=== PATIENT | female | born 1965 | race Caucasian/White ===

== ENCOUNTER 2020-03-07 14:30 | Outpatient (RCR) | payer MEDICAID, SELFPAY | END 2020-03-13 09:26 | disposition other institution (70) | LOC: HO.OT 14:30 | PROVIDERS: Visit Provider Orthopaedic Surgery | DX: S67.193D Crushing injury of left middle finger, subsequent encounter (principal) | CPT/HCPCS: 97035; 97110; 97140; 97760 ==

== ENCOUNTER 2020-03-07 16:17 | Outpatient (REF) | payer MEDICAID, SELFPAY | END 2020-03-07 16:18 | disposition home or self-care (01) | LOC: HO.LAB 16:17 | PROVIDERS: PCP Internal Medicine; Visit Provider Internal Medicine | DX: Z20.828 Contact with and (suspected) exposure to other viral communicable diseases (principal) | CPT/HCPCS: C9803; U0003 ==

== ENCOUNTER → 2020-06-28 13:39 | Outpatient (BNVA) | payer MEDICAID, SELFPAY | PROVIDERS: PCP Internal Medicine; Visit Provider Hospitalist | DX: J41.8 Mixed simple and mucopurulent chronic bronchitis (principal); R91.8 Other nonspecific abnormal finding of lung field; D80.1 Nonfamilial hypogammaglobulinemia | CPT/HCPCS: 99212 ==

== ENCOUNTER → 2020-09-26 15:44 | Outpatient (BNVA) | payer MEDICAID, SELFPAY | PROVIDERS: PCP Internal Medicine; Visit Provider Hospitalist | DX: D80.1 Nonfamilial hypogammaglobulinemia (principal); R91.8 Other nonspecific abnormal finding of lung field; J41.8 Mixed simple and mucopurulent chronic bronchitis | CPT/HCPCS: 99212 ==

== ENCOUNTER → 2020-11-15 15:08 | Outpatient (BNVA) | payer MEDICAID, SELFPAY | PROVIDERS: PCP Internal Medicine; Visit Provider Hospitalist | DX: J41.8 Mixed simple and mucopurulent chronic bronchitis (principal); R91.8 Other nonspecific abnormal finding of lung field; Q79.60 Ehlers-Danlos syndrome, unspecified; K44.9 Diaphragmatic hernia without obstruction or gangrene | CPT/HCPCS: 99212 ==

== ENCOUNTER → 2021-03-25 14:26 | Outpatient (BNVA) | payer MEDICAID, SELFPAY | PROVIDERS: PCP Internal Medicine; Visit Provider Hospitalist | DX: J41.8 Mixed simple and mucopurulent chronic bronchitis (principal); R91.8 Other nonspecific abnormal finding of lung field; K44.9 Diaphragmatic hernia without obstruction or gangrene; Q79.60 Ehlers-Danlos syndrome, unspecified | CPT/HCPCS: 99212 ==

== ENCOUNTER → 2021-06-02 15:20 | Outpatient (BNVA) | payer MEDICAID, SELFPAY | PROVIDERS: PCP Internal Medicine; Visit Provider Hospitalist | DX: J41.8 Mixed simple and mucopurulent chronic bronchitis (principal); R91.8 Other nonspecific abnormal finding of lung field; J98.11 Atelectasis; R88.8 Abnormal findings in other body fluids and substances; K44.9 Diaphragmatic hernia without obstruction or gangrene; K86.89 Other specified diseases of pancreas; Q79.60 Ehlers-Danlos syndrome, unspecified; Z79.899 Other long term (current) drug therapy | CPT/HCPCS: 99212 ==

== ENCOUNTER → 2021-08-01 15:18 | Outpatient (BNVA) | payer MEDICAID, SELFPAY | PROVIDERS: PCP Internal Medicine; Visit Provider Hospitalist | DX: J41.8 Mixed simple and mucopurulent chronic bronchitis (principal); R91.8 Other nonspecific abnormal finding of lung field; G47.33 Obstructive sleep apnea (adult) (pediatric); J98.11 Atelectasis; Q79.60 Ehlers-Danlos syndrome, unspecified; R88.8 Abnormal findings in other body fluids and substances | CPT/HCPCS: 99212 ==

== ENCOUNTER → 2021-08-06 09:11 | Outpatient (REF) | payer MEDICAID, SELFPAY | LOC: HO.SL 09:11 | PROVIDERS: PCP Internal Medicine; Visit Provider Hospitalist | DX: G47.33 Obstructive sleep apnea (adult) (pediatric) (principal) | CPT/HCPCS: 95806 ==

== ENCOUNTER → 2021-10-06 14:58 | Outpatient (BNVA) | payer MEDICAID, SELFPAY | PROVIDERS: PCP Internal Medicine; Visit Provider Hospitalist | DX: J44.9 Chronic obstructive pulmonary disease, unspecified (principal); E84.9 Cystic fibrosis, unspecified; R91.8 Other nonspecific abnormal finding of lung field; Q79.60 Ehlers-Danlos syndrome, unspecified; F17.210 Nicotine dependence, cigarettes, uncomplicated | CPT/HCPCS: 99212 ==

== ENCOUNTER 2021-10-09 09:36 | Outpatient (REF) | payer MEDICAID, SELFPAY ==
--- NOTE | ~2021-10-09 | CT_ITS ---
EXAMINATION: CHEST CT WITHOUT CONTRAST HIGH RIGHT CLINICAL INFORMATION: Cystic fibrosis COMPARISON: None TECHNIQUE: Axial images through the chest without contrast. Sagittal and coronal reconstructions on the technologist workstation were performed. High-resolution 1 mm thin axial images through the chest was also performed. Patient dose 1 2 1 mg/cm This CT examination was performed using dose optimization techniques as appropriate, variously including the following: *Automated exposure control *Adjustment of mA and/or kV according to patient size (this includes techniques or standardized protocols for targeted exams where dose is matched to indication/reason for exam; i.e. extremities or head) *Use of iterative reconstruction technique FINDINGS: There is evidence of mild paraseptal emphysema. There are several small lung cysts seen in the upper lobes. No definite bronchiectasis is seen. No significant bronchial wall thickening. No endobronchial or endotracheal lesion is seen. The lungs are clear. The mediastinum is normal. There is very minimal coronary artery calcification. There is no pleural effusion or pleural thickening. No chest wall mass or enlarged axillary lymph nodes. Post surgical changes to the stomach. Post cholecystectomy. There is mild curvature of the lower thoracic spine to the right. Bony structures are otherwise unremarkable. CT/CT chest wo con - High Res IMPRESSION: No evidence of cystic fibrosis seen. Mild paraseptal emphysema and cystic changes.
== END 2021-10-09 09:37 | disposition home or self-care (01) ==
LOC: HO.CT 09:36
PROVIDERS: PCP Internal Medicine; Visit Provider Hospitalist
DX: E84.9 Cystic fibrosis, unspecified (principal); J44.9 Chronic obstructive pulmonary disease, unspecified; Q79.60 Ehlers-Danlos syndrome, unspecified; R91.8 Other nonspecific abnormal finding of lung field
CPT/HCPCS: 71250

== ENCOUNTER 2021-11-18 11:31 | Outpatient (REF) | payer BC, SELFPAY ==
[2021-11-18 11:47] LABS: MANUAL DIFF FLAG NO
[2021-11-18 12:33] LABS: Hematocrit 40.5 % (37.0-47.0); Hemoglobin 13.1 g/dl (12.0-16.0); Mean Corpuscular Hemoglobin 28.2 pg (27.0-33.0); Mean Corpuscular Volume 87.3 fL (80.0-98.0); Red Blood Count 4.64 X10*6/uL (4.20-5.50); White Blood Count 6.9 X10*3/uL (4.8-10.8)
[2021-11-18 12:34] LABS: Basophils Absolute Auto 0.1 X10*3/uL (0.0-0.2); Basophils Percent Auto 0.7 % (0-2); Eosinophils Absolute Auto 0.2 X10*3/uL (0.0-0.4); Eosinophils Percent Auto 2.6 % (0-4); Imm Gran Abs Auto 0.02 X10*3/uL (0.00-0.03); Imm Gran Pct Auto 0.3 % (0.0-0.4); Lymphocytes Percent Auto 28.6 % (20-40); Mean Corpuscular HGB Conc 32.3 g/dl (31.0-35.0); Mean Platelet Volume 12.1 fL (9.4-12.3); Monocytes Absolute Auto 0.5 X10*3/uL (0.1-1.2); Monocytes Percent Auto 7.8 % (2-11); Neutrophils Absolute Auto 4.1 x10*3/uL (2.0-8.3); Platelet Count 247 X10*3/uL (160-400); Red Cell Distribution Width 12.7 % (11.0-16.0)
[2021-11-18 13:13] LABS: Alanine Aminotransferase 17 U/L (0-31); Albumin Level 4.2 g/dL (3.5-5.0); Alkaline Phosphatase 73 U/L (39-117); Anion Gap 10 (12-20); Aspartate Amino Transferase 20 U/L (5-31); Bilirubin Total 0.7 mg/dL (0.0-1.0); Blood Urea Nitrogen 10 mg/dL (9-16); Calcium 9.2 mg/dL (8.4-10.2); Carbon Dioxide 28 mmol/L (22-29); Chloride 105 mmol/L (96-108); Estimated Glomerular Filt Rate > 60; Glucose Random 104 mg/dL (60-115); Potassium 4.1 mmol/L (3.3-5.1); Sodium 139 mmol/L (135-145); Total Protein 6.4 g/dL (6.5-8.0)
[2021-11-18 13:20] LABS: Cortisol Random 13.5 ug/dL; TSH reflex Free T4 2.99 uIU/mL (0.32-4.0)
== END 2021-11-18 11:32 | disposition home or self-care (01) ==
LOC: HO.LAB 11:31
PROVIDERS: Visit Provider Internal Medicine
DX: Z00.00 Encounter for general adult medical examination without abnormal findings (principal); E04.2 Nontoxic multinodular goiter; E78.00 Pure hypercholesterolemia, unspecified; I10 Essential (primary) hypertension
CPT/HCPCS: 36415; 80053; 82533; 84443; 85025

== ENCOUNTER 2022-01-21 15:25 | Outpatient (REF) | payer BC, SELFPAY | END 2022-01-21 15:26 | disposition home or self-care (01) | LOC: HO.LAB 15:25 | PROVIDERS: PCP Internal Medicine; Visit Provider Hospitalist | DX: Z13.89 Encounter for screening for other disorder (principal) ==

== ENCOUNTER 2022-02-17 10:09 | Outpatient (REF) | payer BC, MEDICAID, SELFPAY ==
[2022-02-17 10:33] LABS: MANUAL DIFF FLAG NO
[2022-02-17 11:46] LABS: Basophils Absolute Auto 0.1 X10*3/uL (0.0-0.2); Eosinophils Absolute Auto 0.6 X10*3/uL (0.0-0.4); Eosinophils Percent Auto 8.6 % (0-4); Hematocrit 38.5 % (37.0-47.0); Hemoglobin 12.6 g/dl (12.0-16.0); Imm Gran Abs Auto 0.02 X10*3/uL (0.00-0.03); Imm Gran Pct Auto 0.3 % (0.0-0.4); Lymphocytes Absolute Auto 1.7 X10*3/uL (1.2-4.9); Lymphocytes Percent Auto 25.3 % (20-40); Mean Corpuscular HGB Conc 32.7 g/dl (31.0-35.0); Mean Corpuscular Hemoglobin 28.8 pg (27.0-33.0); Mean Corpuscular Volume 88.1 fL (80.0-98.0); Mean Platelet Volume 12.2 fL (9.4-12.3); Monocytes Absolute Auto 0.5 X10*3/uL (0.1-1.2); Monocytes Percent Auto 6.8 % (2-11); Neutrophils Absolute Auto 3.9 x10*3/uL (2.0-8.3); Platelet Count 244 X10*3/uL (160-400); Red Blood Count 4.37 X10*6/uL (4.20-5.50); Red Cell Distribution Width 13.1 % (11.0-16.0); White Blood Count 6.8 X10*3/uL (4.8-10.8)
[2022-02-17 12:21] LABS: Erythrocyte Sedimentation Rate 2 MM/HR (0-20)
[2022-02-19 13:46] LABS: Immunoglobulin G Subclass 1 308 mg/dL (382-929); Immunoglobulin G Subclass 2 114 mg/dL (241-700); Immunoglobulin G Subclass 3 49 mg/dL (22-178); Immunoglobulin G Total 527 mg/dL (600-1640)
[2022-02-19 17:06] LABS: Immunoglobulin E 48 kU/L (<OR=114)
[2022-02-25 14:36] LABS: Asperg fumigatus Precip Abs NEGATIVE (NEGATIVE); Micropoly faeni Abs NEGATIVE (NEGATIVE); Pigeon serum Abs NEGATIVE (NEGATIVE); Saccharo pora viridis Abs NEGATIVE (NEGATIVE); Thermo candidus Abs NEGATIVE (NEGATIVE); Thermoa vulgaris #1 NEGATIVE (NEGATIVE)
== END 2022-02-17 10:10 | disposition home or self-care (01) ==
LOC: HO.LAB 10:09
PROVIDERS: PCP Internal Medicine; Visit Provider Hospitalist
DX: D80.1 Nonfamilial hypogammaglobulinemia (principal); J45.909 Unspecified asthma, uncomplicated; R91.8 Other nonspecific abnormal finding of lung field
CPT/HCPCS: 36415; 82784; 82785; 85025; 85652; 86003; 86331; 86606; 86609

== ENCOUNTER → 2022-07-10 14:16 | Outpatient (BNVA) | payer BC, SELFPAY | PROVIDERS: PCP Internal Medicine; Visit Provider Hospitalist | DX: Z13.89 Encounter for screening for other disorder (principal) ==

== ENCOUNTER 2023-06-24 13:20 | Outpatient (AMB) | payer BC, SELFPAY ==
[2023-06-24 13:29] VITALS: PULSE 79; O2SAT 98; BMI 17.8
--- NOTE | 2023-06-24 13:29 | A.OFFVIS_ITS ---
Intake Vital Signs 06/24/23 13:29 Height 5 ft 6 in Weight 110 lb BMI 17.8 Pulse 79 Pulse Source Pulse Oximeter Pulse Oximetry (%) 98 Oxygen Delivery Method Room Air Intake Visit Reasons: asthma Operations Intelligence Required: No Allergies warfarin Allergy (Severe, Verified 06/24/23 13:30) BP Drop codeine [CODEINE] Allergy (Unknown, Verified 06/24/23 13:30) ITCHING aspirin [ASPIRIN] Adverse Reaction (Unknown, Verified 06/24/23 13:30) STOMACH UPSET Lxjsehq-AJG-FrJ Reductase Inhibitor [WUUKUNB-USN-TSJ REDUCTASE INHIBITOR] Adverse Reaction (Unknown, Verified 06/24/23 13:30) MYALGIA HPI HPI Comments History of Present Illness Details The patient is a 58-year-old woman with a known history of asthma and COPD who has been having worsening shortness of breath. Overall her breathing is better at this time. She does have Symbicort that she uses. She stopped using the Spiriva at this time. She has noticed that her symptoms are worse usually during the late summer early fall with the different allergy sees. Or she was concerned about overnight hypoxia up so therefore she underwent a 3 night overnight oximetry. He did demonstrate some episodic hypoxia but it was likely inaccurate as it appeared and grafted day were not recording any actual reliable data. Therefore, based on those 3 studies there doesn't appear to be in significant hypoxia to have to treat at this time. She denies any headaches or daytime drowsiness any way. She is still being evaluated for the EDS. The patient did very well with pulmonary rehabilitation. She only had for classes to complete her phase 2 course. Her insurance changed at this time. Will see if we could try to have her complete the program with her insurance. 08/01/2021 the patient is here for a pulmo ronak follow-up visit. Since we last spoke she did go to [place] to be evaluated for the abnormal sweat test. She will have that repeated and she will have genetic testing for cystic fibrosis as well. The suspicion that she has cystic fibrosis or variants is very low. In the meantime she continues use respiratory therapy. The patient has not required any prednisone or her short-acting beta agonist. She has been having issues with daytime drowsiness. She does have snoring at nighttime and also has headaches in the morning. Her [place] score is elevated 04/25. Will request a home sleep study at this time. 10/06/2021 the patient is here for a pulsameer simons follow-up visit. Since we last spoke the patient did follow up in [place] with the cystic fibrosis clinic. 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 She does have multiple organ involvement now on pancreatic enzymes for her pancreatic insufficiency and also complaining of significant weight loss. She is having respiratory issues with chronic bronchitis and very difficult to expectorate mucus plugs. Indeed this is consistent with her diagnosis of cystic fibrosis. If she needs more aggressive chest physical therapy. She would like to try the hypertonic saline. She also has an Acapella valve. Will continue using that for now. We will request a CT scan of the chest to further address her airway disease and potential bronchiectasis. Will request high-resolution cuts to further address that. In the meantime we need to follow-up with pulmonary nodules specially with her significant weight loss. She did have a chest x-ray which was without any acute disease back in July 2021 which was done local hospital. At this point the CT scan will be necessary to further address her ongoing symptoms her new diagnosis of cystic fibrosis in addition to her underlying pulmonary nodules. 11/11/2021 the patient is here for pulmon denzel follow-up visit. Overall the patient has been doing well. Initially she was having worsening respiratory symptoms specially at nighttime. She was waking up short of breath with coughing wheezing. She would have to use her inhaler. She will be due desperate to set up for the nebulizer. She has been using the Alvesco and also the Stiolto. She also has been using the nebulizer about once a day. Once the patient started taking the azithromycin as prescribed her symptoms did improve. She will continue to take the azithromycin 3 times a week in order to treat for her chronic bronchitis and CFTR related disease. The patient also has a low IgG level based on her recent blood work. Therefore she does have some hypo gammaglobulinemia. But her levels are slightly decreased and she is responding to the azithromycin 3 times a week. Therefore I would have her hold off on considering IVIG infusions unless she develops worsenign respiratory symptoms. We did talk about reflux disease and making sure that she sleeps elevated. She will looking to getting risers for the bed to try to minimize potential pharyngeal laryngeal penetration in the meantime she did undergo her CT scan of the chest with high-resolution cuts. I personally reviewed the CT scan. She does have some thickening of the airways and some areas suggesting of chronic bronchitis. She also has bronchiectatic changes primarily on the left base. These are minimal changes. Patient also has some evidence of emphysema primarily in the upper lung zones. Subcentimeter pulmonary nodules are also identified. 02/17/2022 the patient is here for pulia ronak follow-up visit. She is having worsening respiratory symptoms. She had recovered from her COVID syndrome several weeks ago when she was back to her baseline. Then she started developing nasal congestion and cough. Subsequently after that she started developing wheezing. She had significant allergies in the past. She had allergy testing and had an carbon electrodes supervisor that had been providing her with immunotherapy. However, she is no longer following up with that group. The patient did have significant wheezing on examination. She will need additional prednisone. In addition to that her PFTs to demonstrated mild obstruction which indeed could be uncontrolled asthma. The patient also has pulmonary nodules therefore will also reassess for a hyper sensitivity reaction. She continues to take the pancreas and is increasing her caloric intake. She has been able to maintain her weight and her BMI around 18-19. In view of the worsening respiratory symptoms and recurrent flare ups we need to readdress the question of her low IgG levels. Therefore, we are request allergy testing and IgG levels it is time to see if she has a candidate for any additional therapies. 03/17/2022 the patient is [facility]. Since we last spoke the patient apparently received her flu and also her COVID-19 booster. In addition to that she started a new medication Fasenra. She started developing a reaction to the medication with evidence of angioedema and some shortness of breath. She did call our office to be evaluated. We did try to call her back but no answer. Fortunately she was able to talk to her primary care doctor. She was placed on prednisone. Patient is doing better now. She still has some evidence of injury edema. She does have an EpiPen available in case her symptoms worsen. She did take a small dose of prednisone unfortunately the prednisone does cause her significant irritability and also Effexor sleep. The patient still having some wheezing on examination I do believe that she may do better with Medrol. Therefore I will send Medrol to the pharmacy. The patient may also benefit from Racemic epi. The patient can get that xzeg-bjw-ziicunh, Primamist. the patient does not feel that it was likely the Fasenra. Although she should premedicate before her next dose. The patient is concerned about the persistent hypogammaglobulinemia. In view of her significant conditions the patient would like to be evaluated for IVIG. The patient does have a very complicated medical history and I do believe the best way to further evaluate her immunodeficiency would be to refer her to Allergy and Immunology. 07/10/2022 the patient has a telephone vi sit today. Recently the patient had a sick contact while flying back from her [place]. She developed laryngitis and subsequently developed the cough and chest congestion and bronchitis. It definitely activated her asthma. The patient started some prednisone that she had left over. In addition to that she doubled up on the azithromycin. Clinically she is doing a little better but she still having hard time with breathing and coughing. Also no additional medication at this time. Her mucus that was thicker and yellow in color. She is concerned of a bacterial infection that is not clearing up with the azithromycin. Therefore we talked about sending a quinolone. She is aware that she needs to monitor closely for any tendinitis. In addition to that she did follow up with immunology. Due to her immunodeficiency and hypogammaglobulinemia was felt that she should start IVIG. She should be doing that in the coming weeks. She also continues some Fasenra injections. Initially was extremely helpful for her for her asthma. However, lately is not lasting the duration that he should. She is wondering if she should switch to a different biologic. She was wondering about Nucala. I did recommend that she speak to her carbon electrodes supervisor about it. I do believe that test prior may be a very good option as well. In the meantime she is going to continue with current respiratory therapy. She undergo pulmonary function studies before going to the [facility] the cystic fibrosis clinic. She is open to transfer over to the heart for 1 which is a little closer to her. 06/24/2023 the patient is here for a pulm onary follow-up visit. The patient has been having worsening asthma symptoms. She did receive a prescription for Medrol which did improve her symptoms. She is still having some wheezing at times. She is weaning still from the Medrol. She continues using her respiratory therapy. The patient needs to go back on inhaled steroid. She had tried multiple inhalers in the past including Flovent, Asmanex could not tolerate it due to adverse effects including thrush. She can not tolerate the powder inhalers. The only inhaled steroid that works for her Alvesco. I will request that went from her at this time. In addition to that she had responded very well to the Fasenra injections but they were then not helpful. She then went to allergy immunology and was prescribed Tezspire. Unfortunately that resulted in worsening infections and worsening respiratory symptoms and GI adverse effects. Therefore she stopped it. Now with worsening asthma symptoms and her significant eosinophilia it will be reasonable to try her on Nucala. Nucala be once a month and therefore be more effective for her. Currently she is on steroids over would have to wait for her to wean off the steroids to check her eosinophil level. The last time we checked it was back in 2021 and her absolute eosinophils worsens 100. the patient also has a immunodeficiency and currently receiving IgG therapy with allergy immunology. The therapy has been affecting beneficial. [facility] Medical History (Updated 06/24/23 @ 21:19 by Vasquez Ochoa MD) Primary immunodeficiency disorder Hypogammaglobulinemia Asthma Cystic fibrosis Asthma-COPD overlap syndrome Atelectasis Pancreatic insufficiency Abnormal sweat test Hiatal hernia EDS (Bhupendra-Danlos syndrome) Personal history of nicotine dependence Hypogammaglobulinemia Pulmonary nodules COPD (chronic obstructive pulmonary disease) Surgical History (Updated 06/17/23 @ 10:45 by Malu Steinberg RN) H/O foot surgery H/O total hysterectomy Social History (Updated 10/06/21 @ 15:18 by CHARLOTTE Bangura) Household Members: Other Household Members Other:: 2 cats and one dog Patient Tobacco Use Status: Current everyday Tobacco user Tobacco use type: Cigarette Cigarettes Per Day: 4 Years Smoked: 30 years Review of Systems Const Denies night sweats and Reports weight loss Eyes Denies change in vision ENT Denies change in voice, Reports lip swelling, Denies mouth pain, Reports nasal congestion, Reports nasal discharge, Reports post nasal drip and Denies tongue swelling Card Denies chest pain, Reports dyspnea and Reports dyspnea on exertion Resp Reports chest congestion, Reports cough, Denies pain on inspiration, Denies pain with cough, Reports dyspnea, Reports dyspnea on exertion and Reports wheezing GI Reports GI cramping, Reports heartburn, Reports diarrhea and Reports loose stools Musc Denies no additional complaints Neuro Denies Neuro-related abnormal movements Psych Denies no additional complaints Facundo/Lymph Denies easy bleeding and Denies lymphadenopathy Aller/Immun Reports lip swelling, Denies tongue swelling and Reports wheezing Physical Exam Vital Signs: Last Vital Signs Pulse 79 06/24/23 13:29 Pulse Ox 98 06/24/23 13:29 Oxygen Delivery Method Room Air 06/24/23 13:29 BMI result Body Mass Index 17.8 Const General: alert HEENT Face and sinus: Yes erythema and Yes edema Mouth: lip abnormal Neck Neck: Yes full ROM Chest Chest palpation & inspection: normal inspection of the chest Resp Effort & Inspection: prolonged expiratory phase Auscultation: wheezes and diminished lung sounds Cardio Rate: regular rate Rhythm: regular rhythm Heart sounds: S1 normal heart sound present and S2 normal heart sound present GI Palpation (GI): Tenderness to palpation present (GI) (distended and tesnder on the lower quadrents) Auscultation: normal bowel sounds Skin General skin exam: rashes and/or lesions noted Assessment & Plan Assessment & Plan (1) Asthma: Comment: uncontrolled, eosinophilic asthma Code(s): J45.909 - Unspecified asthma, uncomplicated Qualifiers: Asthma complication type: with acute exacerbation Asthma persistence: persistent Asthma severity: severe Qualified Code(s): J45.51 - Severe persistent asthma with (acute) exacerbation (2) Cystic fibrosis: Comment: +sweat test x 2, +genetic testing Code(s): E84.9 - Cystic fibrosis, unspecified (3) Pulmonary nodules: Comment: (stable right lung nodules on 07/17/[address] @ [facility]) Code(s): R91.8 - Other nonspecific abnormal finding of lung field (4) EDS (Bhupendra-Danlos syndrome): Code(s): Q79.60 - Bhupendra-Danlos syndrome, unspecified (5) Hypogammaglobulinemia: Code(s): D80.1 - Nonfamilial hypogammaglobulinemia Plan Start medrol taper restart Alvesco HFA, tried and failed Asmanex, flovent and powdered inhalers. But did not tolerate Awaiting IVIG therapy continue CPT with hypertonic saline 7% and acapella valve Consider CPT with percussion vest if no better Continue Alvesco/Stiolto SHARDA as needed (Xopenex) start Nucala F/U 3 months Orders: Orders Complete Blood Count Auto Diff Today J45.909 - Unspecified asthma, uncomplicated Immunoglobulin E Today J45.909 - Unspecified asthma, uncomplicated Erythrocyte Sedimentation Rate Today J45.909 - Unspecified asthma, uncomplicated Medications: Refilled methylprednisolone (Medrol) Take: 2 tabs daily x 10 days, then 1 tab daily x 10 days 20 days 30 tabs 0RF Quality Reporting (2019) Adult ([facility] ) Smoking risk assessment performed?: Yes Patient Tobacco Use Status: Current everyday Tobacco user Coding Level of Care Code Est Pt Level 4 (71469) Diagnoses Severe persistent asthma with acute exacerbation J45.51 Asthma complication type: with acute exacerbation Asthma persistence: persistent Asthma severity: severe Cystic fibrosis E84.9 Pulmonary nodules R91.8 EDS (Bhupendra-Danlos syndrome) Q79.60 Hypogammaglobulinemia D80.1 Time Spent (min) 20
== END 2023-06-24 13:57 | disposition home or self-care (01) ==
PROVIDERS: PCP Internal Medicine; Visit Provider Hospitalist
DX: J45.51 Severe persistent asthma with (acute) exacerbation (principal); E84.9 Cystic fibrosis, unspecified; R91.8 Other nonspecific abnormal finding of lung field; Q79.60 Ehlers-Danlos syndrome, unspecified; D80.1 Nonfamilial hypogammaglobulinemia
CPT/HCPCS: 99214

== ENCOUNTER → 2023-06-24 13:20 | Outpatient (BNVA) | payer BC, SELFPAY | PROVIDERS: PCP Internal Medicine; Visit Provider Hospitalist ==

== ENCOUNTER → 2023-07-01 11:15 | Outpatient (BNV) | payer BC, SELFPAY | PROVIDERS: Visit Provider Psychiatry & Neurology Psychiatry | DX: F33.9 Major depressive disorder, recurrent, unspecified (principal); F69 Unspecified disorder of adult personality and behavior; F48.9 Nonpsychotic mental disorder, unspecified | CPT/HCPCS: 90792; 90832; 99213; 99499 ==

== ENCOUNTER 2023-07-05 09:45 | Outpatient (RCR) | payer BC, SELFPAY ==
[2023-06-17 10:47] VITALS: BP 116/74; PULSE 78; TEMP 37.2
[2023-06-17 10:48] VITALS: BMI 17.8
--- NOTE | 2023-06-17 11:31 | PC.ADMIT ---
06/16/23. Unable to complete nursing assessment at this time. Per [facility] manager of creative services patient is unsure if she wants to continue coming to the program. Patient wants to attend all the groups today to see if this is a good fit for her. [facility] applications programmer is aware and I will meet with her tomorrow if she decides to continue with the program. [ End ] 06/17/23. Patient is a 58 year old single female who was referred to [facility] by her therapist d/t increased depression, anxiety, and feeling overwhelmed with life stresses including work, father being ill and living [place] another state, cat being sick, having car issues, and her own medical issues including GI and immune issues. Patient is alert and oriented x4. Calm and cooperative. Presented with depressed mood and anxious affect. Denied SI or HI. Patient given a copy of her safety plan and I reviewed the plan with her if needed. Patient signed a release of information regarding her pharmacy today. Reconciled medications with patient. Patient reports taking medications as prescribed.
--- NOTE | 2023-06-17 14:52 | HO.PHP ---
Client's case has been opened and reviewed in treatment team.
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
--- NOTE | 2023-06-23 09:30 | PC.NURSE ---
oN called out of the program on 06/22/23 and 06/23/23 d/t exasperation of her asthma symptoms, she also has COPD. She is using her nebulizer and inhalers. She has an appointment with her silverware cleaner at [facility] on 05/24/23 at 1:15 pm to f/u. [facility] staff is aware.
--- NOTE | 2023-06-30 15:32 | HO.PHP ---
PHP staff member followed up with Lisa after group 3 due to her appearing angry. Lisa stated that today is a challenging day and that she was thinking about what was said around learned helplessness. Lisa feels as though she isn't working the program in the manner it is intended. [facility] staff informed her of her observations and noted that she does not see her struggling with learned helplessness due to her acknowledging areas she needs to work on. PHP staff stated she has observed her processing in the group settings the precipitating factors and utilizing the groups appropriately. Lisa was receptive. [facility] staff explored any safety concerns. Lisa expressed none and stated she is safe and will see the clinician tomorrow. [facility] staff member was receptive.
--- NOTE | 2023-07-02 23:43 | PM.EVENT ---
Event Note Date of Service: 07/05/23 Event Note: Scheduled to meet with patient who called out today. I had missed her on Wednesday as I was unable to find her at the end of the day. Prior Wednesday last week she was out. Time Spent With Patient Time: Total time managing care of this patient today ____ minutes.
--- NOTE | 2023-07-05 16:00 | PC.NURSE ---
Dr Campbell met with patient and reviewed patient discharge paperwork including discharge medications. I printed patient discharge paperwork and had patient review again and sign paperwork. Patient feeling stable for discharge. [place] the program was helpful to her. Denied SI or any safety concerns.
--- NOTE | 2023-07-05 21:11 | HO.PHPPROGNO ---
Subjective Subjective Date of Service: 07/05/23 Reason For Visit: ADHD,MDD,CHAIM,PTSD Interim History: Patient seen for follow-up, anticipating discharge at the end of program today.? Reports no acute issues or concerns. Medication compliant, medications well-tolerated. Denies any adverse effects.? Mood is stable.? Denies any hopelessness or SI. Denies thoughts of harming self or others at this time. Denies any aggressive ideation or HI. Denies any paranoia or AH or VH. Sleep, appetite, energy stable. Mental Status Exam Mental Status Exam Narrative: Alert, oriented, in no acute distress. Initially agreeable with encounter, but difficult to redirect, evasive/guarded around specific parts of history. Uncooperative with regards to reporting on prior treatment history. No psychomotor agitation or neurovegetative retardation. Eye contact maintained. Mood anxious , affect restricted range, overmodulated/ bright. Speech normal. Thought process linear, coherent. Thought content related to stressors, +med-seeking, denies any helplessness, hopelessness or SI.? No aggressive ideation or HI. No paranoia or delusional content elicited. No evidence of psychosis. Insight and judgment impaired. Diagnostics Vital Signs (24Hr): BMI result Body Mass Index 17.8 Assessment & Plan Assessment & Plan (1) MDD (major depressive disorder), recurrent episode: Status: Acute Code(s): F33.9 - Major depressive disorder, recurrent, unspecified (2) Mental and behavioral problem in adult: Status: Acute Code(s): F69 - Unspecified disorder of adult personality and behavior; F48.9 - Nonpsychotic mental disorder, unspecified Assessment and Plan: pt reports beign treated for ADHD, rule out other neurocognitive disorder r/o characterological features Plan Discharge from [facility] continue regular medications will defer further medication management to outpatient provider Refills sent to pharmacy Patient educated on: diagnosis and medication risk/benefits Informed Consent: understands Reason for contiued partial hosp. stay Substantial Risk for: stable for discharge Certification I certify that partial hospital treatment is medically necessary due to the symptoms and problems resulting from the patient's mental illness and the failure to treat the patient at the partial hospital level of care would likely result in the patient requiring inpatient psychiatric care which could not be prevented at a less intensive level of care. Total time managing care of this patient today _30___ minutes. Discharge Plan Discharge Attending provider: Rosa Campbell Medications: New nicotine [Nicoderm CQ] 14 mg/24 hr patch 24 hour 1 patch transdermal QAM 14 Days Qty: 14 0RF Rx Instructions: remove patch daily at night Continued desloratadine 5 mg tablet 5 mg PO BID Qty: 180 0RF Nucala 100 mg/mL auto-injector 100 mg subcut Q4W 28 Days Qty: 1 11RF vilazodone 10 mg tablet See Rx Instructions .ROUTE .COMPLEX Rx Instructions: Take 1/2 tab for 5 days then one tab daily. Filled 06/16/23. memantine 21 mg capsule,sprinkle,ER 24hr 21 mg PO DAILY famotidine [Pepcid] 40 mg Tablet 40 mg PO BID nicotine [Nicoderm CQ] 7 mg/24 hr patch 24 hour 1 patch transdermal Q24H Qty: 14 0RF Rx Instructions: apply patch daily in AM; remove patch daily in PM telmisartan 40 mg tablet 40 mg PO DAILY Stiolto Respimat 2.5-2.5 mcg/actuation mist 2 puff inhalation DAILY Discontinued dexmethylphenidate 2.5 mg tablet 2.5 mg PO DAILY No Action albuterol sulfate 2.5 mg /3 mL (0.083 %) solution for nebulization 2.5 mg inhalation BID 30 Days Qty: 180 11RF albuterol sulfate 90 mcg/actuation HFA aerosol inhaler 2 puff PO Q4-6H PRN (Reason: for wheezing) Qty: 1 12RF estradiol 1 mg tablet 1 mg PO DAILY Rx Instructions: off 1 week; repeat cycle methylprednisolone [Medrol] 4 mg tablet See Rx Instructions PO DAILY 20 Days Qty: 30 0RF Rx Instructions: Take: 2 tabs daily x 10 days, then 1 tab daily x 10 days Stand Alone Forms: Patient Portal Discharge page Patient Education: Depression (DC) Print Language: Lao Telehealth Telehealth Location of provider rendering services: other (private office) Location of patient: other ([facility]) Patient Identification confirmed using: Name, : Yes Telehealth method: video Patient verbally consented to treatment: Yes
== END 2023-07-05 23:59 | disposition home or self-care (01) ==
LOC: HO.PHPA 09:45
PROVIDERS: Visit Provider Psychiatry & Neurology Psychiatry
DX: F33.9 Major depressive disorder, recurrent, unspecified (principal); F69 Unspecified disorder of adult personality and behavior; F48.9 Nonpsychotic mental disorder, unspecified
CPT/HCPCS: 90791; 90853

== ENCOUNTER 2023-07-13 11:36 | Outpatient (REF) | payer BC, SELFPAY ==
[2023-07-13 11:50] LABS: MANUAL DIFF FLAG NO
[2023-07-13 13:04] LABS: Basophils Absolute Auto 0.1 X10*3/uL (0.0-0.2); Basophils Percent Auto 0.8 % (0-2); Eosinophils Absolute Auto 0.4 X10*3/uL (0.0-0.4); Eosinophils Percent Auto 5.6 % (0-4); Hemoglobin 12.6 g/dl (12.0-16.0); Imm Gran Abs Auto 0.02 X10*3/uL (0.00-0.03); Imm Gran Pct Auto 0.3 % (0.0-0.4); Lymphocytes Absolute Auto 2.3 X10*3/uL (1.2-4.9); Lymphocytes Percent Auto 37.2 % (20-40); Mean Corpuscular HGB Conc 32.3 g/dl (31.0-35.0); Mean Corpuscular Hemoglobin 28.5 pg (27.0-33.0); Mean Corpuscular Volume 88.2 fL (80.0-98.0); Mean Platelet Volume 11.8 fL (9.4-12.3); Monocytes Absolute Auto 0.5 X10*3/uL (0.1-1.2); Monocytes Percent Auto 7.6 % (2-11); Neutrophils Absolute Auto 3.1 x10*3/uL (2.0-8.3); Neutrophils Percent Auto 48.5 % (45-73); Platelet Count 223 X10*3/uL (160-400); Red Blood Count 4.42 X10*6/uL (4.20-5.50); Red Cell Distribution Width 13.2 % (11.0-16.0); White Blood Count 6.3 X10*3/uL (4.8-10.8)
[2023-07-13 13:06] LABS: Estimated Average Glucose 100 mg/dL; Hemoglobin A1c % 5.1 % (<6.0)
[2023-07-13 13:22] LABS: Alanine Aminotransferase 23 U/L (0-31); Albumin Level 3.9 g/dL (3.5-5.0); Alkaline Phosphatase 62 U/L (39-117); Anion Gap 9 (12-20); Aspartate Amino Transferase 22 U/L (5-31); Bilirubin Total 0.3 mg/dL (0.0-1.0); Blood Urea Nitrogen 17 mg/dL (9-16); Calcium 8.8 mg/dL (8.4-10.2); Carbon Dioxide 28 mmol/L (22-29); Chloride 109 mmol/L (96-108); Cholesterol 214 mg/dL (<200); Estimated Glomerular Filt Rate > 60; Glucose Random 90 mg/dL (60-115); HDL Cholesterol 81 mg/dL (>40); LDL Cholesterol Calculated 102 mg/dL (<100); Potassium 3.6 mmol/L (3.3-5.1); Sodium 142 mmol/L (135-145); Total Protein 6.6 g/dL (6.5-8.0); Triglycerides 155 mg/dL (<150)
[2023-07-13 13:38] LABS: Thyroid Stimulating Hormone 1.53 uIU/mL (0.32-4.0)
== END 2023-07-13 11:37 | disposition home or self-care (01) ==
LOC: HO.LAB 11:36
PROVIDERS: PCP Internal Medicine; Visit Provider Internal Medicine
DX: Z00.00 Encounter for general adult medical examination without abnormal findings (principal); Z13.6 Encounter for screening for cardiovascular disorders; D84.9 Immunodeficiency, unspecified; E04.2 Nontoxic multinodular goiter; I95.1 Orthostatic hypotension
CPT/HCPCS: 36415; 80053; 80061; 83036; 84443; 85025

== ENCOUNTER 2023-09-29 09:14 | Outpatient (AMB) | payer BC, SELFPAY ==
[2023-09-29 09:20] VITALS: BP 110/70; PULSE 76; O2SAT 97; BMI 17.7
--- NOTE | 2023-09-29 09:20 | A.OFFVIS_ITS ---
Vital Signs 09/29/23 09:20 Height 5 ft 6 in Weight 109 lb 12.643 oz BMI 17.7 BP 110/70 Blood Pressure Location Lt brachial Position Sitting Pulse 76 Pulse Source Pulse Oximeter Pulse Oximetry (%) 97 Oxygen Delivery Method Room Air Intake Visit Reasons: [employer] Rv Technician Required: No Allergies warfarin Allergy (Severe, Verified 09/29/23 09:24) BP Drop codeine [CODEINE] Allergy (Unknown, Verified 09/29/23 09:24) ITCHING aspirin [ASPIRIN] Adverse Reaction (Unknown, Verified 09/29/23 09:24) STOMACH UPSET Ywfaugs-YTE-PmJ Reductase Inhibitor [HAFMZSC-DRM-MBI REDUCTASE INHIBITOR] Adverse Reaction (Unknown, Verified 09/29/23 09:24) MYALGIA HPI Comments Details: The patient is a 58-year-old woman with a known history of asthma and COPD who has been having worsening shortness of breath. Overall her breathing is better at this time. She does have Symbicort that she uses. She stopped using the Spiriva at this time. She has noticed that her symptoms are worse usually during the late summer early fall with the different allergy sees. Or she was concerned about overnight hypoxia up so therefore she underwent a 3 night overnight oximetry. He did demonstrate some episodic hypoxia but it was likely inaccurate as it appeared and grafted day were not recording any actual reliable data. Therefore, based on those 3 studies there doesn't appear to be in significant hypoxia to have to treat at this time. She denies any headaches or daytime drowsiness any way. She is still being evaluated for the EDS. The patient did very well with pulmonary rehabilitation. She only had for classes to complete her phase 2 course. Her insurance changed at this time. Will see if we could try to have her complete the program with her insurance. 08/01/2021 the patient is here for a pulmonary follow-up visit. Since we last spoke she did go to [place] to be evaluated for the abnormal sweat test. She will have that repeated and she will have genetic testing for cystic fibrosis as well. The suspicion that she has cystic fibrosis or variants is very low. In the meantime she continues use respiratory therapy. The patient has not required any prednisone or her short-acting beta agonist. She has been having issues with daytime drowsiness. She does have snoring at nighttime and also has headaches in the morning. Her Camden score is elevated 04/25. Will request a home sleep study at this time. 10/06/2021 the patient is here for a pulmonary follow-up visit. Since we last spoke the patient did follow up in [place] with the cystic fibrosis clinic. 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 She does have multiple organ involvement now on pancreatic enzymes for her pancreatic insufficiency and also complaining of significant weight loss. She is having respiratory issues with chronic bronchitis and very difficult to expectorate mucus plugs. Indeed this is consistent with her diagnosis of cystic fibrosis. If she needs more aggressive chest physical therapy. She would like to try the hypertonic saline. She also has an Acapella valve. Will continue using that for now. We will request a CT scan of the chest to further address her airway disease and potential bronchiectasis. Will request high-resolution cuts to further address that. In the meantime we need to follow-up with pulmonary nodules specially with her significant weight loss. She did have a chest x-ray which was without any acute disease back in July 2021 which was done local hospital. At this point the CT scan will be necessary to further address her ongoing symptoms her new diagnosis of cystic fibrosis in addition to her underlying pulmonary nodules. 11/11/2021 the patient is here for pulmonary follow-up visit. Overall the patient has been doing well. Initially she was having worsening respiratory s ymptoms specially at nighttime. She was waking up short of breath with coughing wheezing. She would have to use her inhaler. She will be due desperate to set up for the nebulizer. She has been using the Alvesco and also the Stiolto. She also has been using the nebulizer about once a day. Once the patient started taking the azithromycin as prescribed her symptoms did improve. She will dav nue to take the azithromycin 3 times a week in order to treat for her chronic bronchitis and CFTR related disease. The patient also has a low IgG level based on her recent blood work. Therefore she does have some hypogammaglobulinemia. But her levels are slightly decreased and she is responding to the azithromycin 3 times a week. Therefore I would have her hold off on considering IVIG infusions unless she develops worsenign respiratory symptoms. We did talk about reflux disease and making sure that she sleeps elevated. She will looking to getting risers for the bed to try to minimize pot ential pharyngeal laryngeal penetration in the meantime she did undergo her CT scan of the chest with high-resolution cuts. I personally reviewed the CT scan. She does have some thickening of the airways and some areas suggesting of chronic bronchitis. She also has bronchiectatic changes primarily on the left base. These are minimal changes. Patient also has some evidence of emphysema primarily in the upper lung zones. Subcentimeter pulmonary nodules are also identified. 02/17/2022 the patient is here for pulmonary follow-up visit. She is having worsening respiratory symptoms. She had recovered from her COVID syndrome several weeks ago when she was back to her baseline. Then she started developing nasal congestion and cough. Subsequently after that she started developing wheezing. She had significant allergies in the past. She had allergy testing and had an audit clerk that had been providing her with immunotherapy. However, she is no longer following up with that group. The patient did have significant wheezing on examination. She will need additional prednisone. In addition to that her PFTs to demonstrated mild obstruction which indeed could be uncontrolled asthma. The patient also has pulmonary nodules therefore will also reassess for a hyper sensitivity reaction. She continues to take the pancreas and is increasing her caloric intake. She has been able to maintain her weight and her BMI around 18-19. In view of the worsening respiratory symptoms and recurrent flare ups we need to readdress the question of her low IgG levels. Therefore, we are request allergy testing and IgG levels it is time to see if she has a candidate for any additional therapies. 03/17/2022 the patient is here for a pulmonary follow-up visit. Since we last spoke the patient apparently received her flu and also her COVID-19 booster. In addition to that she started a new medication Fasenra. She started developing a reaction to the medication with evidence of angioedema and some shortness of breath. She did call our office to be evaluated. We did try to call her back but no answer. Fortunately she was able to talk to her primary care doctor. She was placed on prednisone. Patient is doing better now. She still has some evidence of injury edema. She does have an EpiPen available in case her symptoms worsen. She did take a small dose of prednisone unfortunately the prednisone does cause her significant irritability and also Effexor sleep. The patient still having some wheezing on examination I do believe that she may do better with Medrol. Therefore I will send Medrol to the pharmacy. The patient may also benefit from Racemic epi. The patient can get that [id number], Primamist. the patient does not feel that it was likely the Fasenra. Although she should premedicate before her next dose. The patient is concerned about the persistent hypogammaglobulinemia. In view of her significant conditions the patient would like to be evaluated for IVIG. The patient does have a very complicated medical history and I do believe the best way to further evaluate her immunodeficiency would be to refer her to Allergy and Immunology. 07/10/2022 the patient has a telephone visit today. Recently the patient had a sick contact while flying back from her why. She developed laryngitis and subsequently developed the cough and chest congestion and bronchitis. It definitely activated her asthma. The patient started some prednisone that she had left over. In addition to that she doubled up on the azithromycin. Clinically she is doing a little better but she still having hard time with breathing and coughing. Also no additional medication at this time. Her mucus that was thicker and yellow in color. She is concerned of a bacterial infection that is not clearing up with the azithromycin. Therefore we talked about sending a quinolone. She is aware that she needs to monitor closely for any tendinitis. In addition to that she did follow up with immunology. Due to her immunodeficiency and hypogammaglobulinemia was felt that she should start IVIG. She should be doing that in the coming weeks. She also continues some Fasenra injections. Initially was extremely helpful for her for her asthma. However, lately is not lasting the duration that he should. She is wondering if she should switch to a different biologic. She was wondering about Nucala. I did recommend that she speak to her audit clerk about it. I do believe that test prior may be a very good option as well. In the meantime she is going to continue with current respiratory therapy. She undergo pulmonary function studies before going to the [facility] the cystic fibrosis clinic. She is open to transfer over to the heart for 1 which is a little closer to her. 06/24/2023 the patient is here for a pulmonary follow-up visit. The patient has been having worsening asthma symptoms. She did receive a prescription for Medrol which did improve her symptoms. She is still having some wheezing at times. She is weaning still from the Medrol. She continues using her respiratory therapy. The patient needs to go back on inhaled steroid. She had tried multiple inhalers in the past including Flovent, Asmanex could not tolerate it due to adverse effects including thrush. She can not tolerate the powder inhalers. The only inhaled steroid that works for her Alvesco. I will request that went from her at this time. In addition to that she had responded very well to the Fasenra injections but they were then not helpful. She then went to allergy immunology and was prescribed Tezspire. Unfortunately that resulted in worsening infections and worsening respiratory symptoms and GI adverse effects. Therefore she stopped it. Now with worsening asthma symptoms and her significant eosinophilia it will be reasonable to try her on Nucala. Nucala be once a month and therefore be more effective for her. Currently she is on steroids over would have to wait for her to wean off the steroids to check her eosinophil level. The last time we checked it was back in 2021 and her absolute eosinophils worsens 100. the patient also has a immunodeficiency and currently receiving IgG therapy with allergy immunology. The therapy has been affecting beneficial. 09/29/2023 The patient is here for a pulmonary follow up visit. She is doing well now that she started the Nucala. She denies any significant advere reactions. She is having increasing allergy symptoms and has been taking the xyzol. She is also having the IgG augmentation therapy that has been effective and beneficial. She continues with her maintenance inhalers. Has not requiered any prednisone which is very reassuring. The patient is a former smoker and had been on the LDCT program, but not surrently. I will refer her back. In the meantime she will alse need to have PFTs this summer. [facility] Medical History (Updated 09/29/23 @ 21:36 by Vasquez Ochoa MD) Tobacco dependence in remission Screening for lung cancer Primary immunodeficiency disorder Hypogammaglobulinemia Asthma Cystic fibrosis Asthma-COPD overlap syndrome Atelectasis Pancreatic insufficiency Abnormal sweat test Hiatal hernia EDS (Bhupendra-Danlos syndrome) Personal history of nicotine dependence Hypogammaglobulinemia Pulmonary nodules COPD (chronic obstructive pulmonary disease) Surgical History (Updated 06/17/23 @ 10:45 by Malu Steinberg RN) H/O foot surgery H/O total hysterectomy Social History (Updated 10/06/21 @ 15:18 by CHARLOTTE Bangura) Household Members: Other Household Members Other:: 2 cats and one dog Patient Tobacco Use Status: Current everyday Tobacco user Tobacco use type: Cigarette Cigarettes Per Day: 4 Years Smoked: 30 years Review of Systems Const Denies night sweats and Reports weight loss Eyes Denies change in vision ENT Denies change in voice, Reports lip swelling, Denies mouth pain, Reports nasal congestion, Reports nasal discharge, Reports post nasal drip and Denies tongue swelling Card Denies chest pain, Denies dyspnea and Denies dyspnea on exertion Resp Denies chest congestion, Reports cough, Denies pain on inspiration, Denies pain with cough, Denies dyspnea, Denies dyspnea on exertion and Denies wheezing GI Reports heartburn Musc Denies no additional complaints Neuro Denies Neuro-related abnormal movements Psych Denies no additional complaints Facundo/Lymph Denies easy bleeding and Denies lymphadenopathy Aller/Immun Reports lip swelling, Denies tongue swelling and Denies wheezing Physical Exam Vital Signs: Last Vital Signs Pulse 76 09/29/23 09:20 BP 110/70 09/29/23 09:20 Pulse Ox 97 09/29/23 09:20 Oxygen Delivery Method Room Air 09/29/23 09:20 BMI result Body Mass Index 17.7 Const General: alert HEENT Face and sinus: Yes erythema and Yes edema Mouth: lip abnormal Neck Neck: Yes full ROM Chest Chest palpation & inspection: normal inspection of the chest Resp Effort & Inspection: normal respiratory effort and No prolonged expiratory phase Auscultation: no wheezes and diminished lung sounds Cardio Rate: regular rate Rhythm: regular rhythm Heart sounds: S1 normal heart sound present and S2 normal heart sound present GI Palpation (GI): Tenderness to palpation present (GI) (distended and tesnder on the lower quadrents) Auscultation: normal bowel sounds Skin General skin exam: rashes and/or lesions noted Quality Reporting (2019) Adult ([facility] 138/06/24/68) Smoking risk assessment performed?: Yes Patient Tobacco Use Status: Current everyday Tobacco user Assessment & Plan Assessment & Plan (1) Asthma: Comment: eosinophilic asthma Code(s): J45.909 - Unspecified asthma, uncomplicated Category: Medical Qualifiers: Asthma complication type: with acute exacerbation Asthma persistence: persistent Asthma severity: severe Qualified Code(s): J45.51 - Severe persistent asthma with (acute) exacerbation (2) Cystic fibrosis: Comment: +sweat test x 2, +genetic testing Code(s): E84.9 - Cystic fibrosis, unspecified Category: Medical (3) Pulmonary nodules: Comment: (stable right lung nodules on 07/17/[address] @ [facility]) Code(s): R91.8 - Other nonspecific abnormal finding of lung field Category: Medical (4) EDS (Bhupendra-Danlos syndrome): Code(s): Q79.60 - Bhupendra-Danlos syndrome, unspecified Category: Medical (5) Hypogammaglobulinemia: Code(s): D80.1 - Nonfamilial hypogammaglobulinemia Category: Medical (6) Screening for lung cancer: Code(s): Z12.2 - Encounter for screening for malignant neoplasm of respiratory organs Category: Medical (7) Tobacco dependence in remission: Code(s): F17.201 - Nicotine dependence, unspecified, in remission Category: Medical Plan IgG therapy continue CPT with hypertonic saline 7% and acapella valve Consider CPT with percussion vest if no better Continue Alvesco/Stiolto SHARDA as needed (Xopenex) continue Nucala restart LDCT program PFTs in 2-3 months at [facility] F/U 4-6 months Orders: Orders PFT pulmonary function test 11/01/23 Referrals Lung Cancer Screening Referral F17. - Nicotine dependence, unspecified, in remission, Z12.2 - Encounter for screening for malignant neoplasm of respiratory organs Coding Level of Care Code Est Pt Level 4 (19837) Diagnoses Severe persistent asthma with acute exacerbation J45.51 Asthma complication type: with acute exacerbation Asthma persistence: persistent Asthma severity: severe Cystic fibrosis E84.9 Pulmonary nodules R91.8 EDS (Bhupendra-Danlos syndrome) Q79.60 Hypogammaglobulinemia D80.1 Screening for lung cancer Z12.2 Tobacco dependence in remission F17.201 Time Spent (min) 18
== END 2023-09-29 09:38 | disposition home or self-care (01) ==
PROVIDERS: PCP Internal Medicine; Visit Provider Hospitalist
DX: J45.51 Severe persistent asthma with (acute) exacerbation (principal); E84.9 Cystic fibrosis, unspecified; R91.8 Other nonspecific abnormal finding of lung field; Q79.60 Ehlers-Danlos syndrome, unspecified; D80.1 Nonfamilial hypogammaglobulinemia; Z12.2 Encounter for screening for malignant neoplasm of respiratory organs; F17.201 Nicotine dependence, unspecified, in remission
CPT/HCPCS: 99214

== ENCOUNTER → 2023-09-29 09:14 | Outpatient (BNVA) | payer BC, SELFPAY | PROVIDERS: PCP Internal Medicine; Visit Provider Hospitalist ==

== ENCOUNTER → 2023-10-07 09:00 | Outpatient (BNV) | payer BC, SELFPAY | PROVIDERS: Visit Provider Psychiatry & Neurology Psychiatry | DX: F33.9 Major depressive disorder, recurrent, unspecified (principal); F34.0 Cyclothymic disorder; F41.1 Generalized anxiety disorder; F43.12 Post-traumatic stress disorder, chronic; F69 Unspecified disorder of adult personality and behavior; F48.9 Nonpsychotic mental disorder, unspecified | CPT/HCPCS: 90792; 99213; 99499 ==

== ENCOUNTER 2023-10-29 09:15 | Outpatient (RCR) | payer BC, SELFPAY ==
[2023-10-07 10:46] VITALS: BP 125/75; PULSE 65; TEMP 36.6
[2023-10-07 10:49] VITALS: BMI 19.7
--- NOTE | 2023-10-07 11:35 | PC.ADMIT ---
Patient is a 58 year old partnered female who self referred back to [facility] d/t increased depression and anxiety. She has been unable to work d/t her symptoms and has been on medical leave from work since March 2023. She is currently on unpaid leave. Her goal is to get back to work by November 2023. Patient attended [facility] in June 2023 and found it helpful. Patient reports medication changes as she has been struggling with poor sleep. Also reports medical issues including struggling intermittent headaches, balance issues, and vision issues. She has an appointment with neurologist in November 2023 to f/u. Patient currently presents with depressed mood and anxious affect. She denied SI, no HI. She was given a copy of her safety plan if needed. Her thoughts are clear and organized. She reports she does not have a therapist at this time and felt it was difficult to communicate with her former therapist and it was not a good fit. Looking for a new therapist for more support. Medications reconciled with patient and patient's pharmacy. She reports taking medications as prescribed. Denied any substance issues.
--- NOTE | 2023-10-07 15:09 | HO.IOP ---
Client's case has been opened and reviewed in treatment team.
--- NOTE | 2023-10-08 09:26 | PC.NURSE ---
Patient not scheduled to attend the program today as she has an event planned. Plans to be in the program on Wednesday.
--- NOTE | 2023-10-08 22:54 | PM.EVENT ---
Event Note Date of Service: 10/08/23 Event Note: Patient was scheduled to be seen but called out today. Time Spent With Patient Time: Total time managing care of this patient today ____ minutes.
--- NOTE | 2023-10-11 09:55 | HO.IOP ---
IOP Admin, Amy, informed IOP staff members that Lisa will not in in attendance to program today due to getting laid off from work on Wednesday and she needs to complete paperwork. Amy reported no safety concerns for Lisa and noted that Lisa disclosed she will be in attendance to the program the remainder of the week.
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
--- NOTE | 2023-10-26 08:07 | HO.IOP ---
IOP admin, Amy, informed the IOP team that Lisa will not be coming in to program today due to needing to bring her cat to the oncologist. Amy disclosed that Lisa informed her that she will be here the remainder of the week.
--- NOTE | 2023-10-28 09:56 | HO.IOP ---
[facility] staff member followed up with Lisa due to her not showing up to program, Lisa voiced that she just finished cleaning up and knows it is too late to come now. Lisa shared a new stressor regarding her girlfriend. [facility] staff member encouraged Lisa to further process this tomorrow in groups. Lisa was receptive. Lisa also talked about her cat not doing well and has been getting sick. Lisa shared that her cat does not have much longer to live. [facility] staff member empathized with Lisa. [facility] staff member assessed for SI, plan or intent. No concerns were reported and Lisa noted she will be here tomorrow.
--- NOTE | 2023-10-29 23:59 | P.PNPSP_ITS ---
Subjective Subjective Date of Service: 10/29/23 Reason For Visit: PTSD,MDD,CHAIM,ADHD Interim History: Patient seen for follow-up, anticipating discharge at the end of program today.? Patient discharging today, as her current insurance will be ending this weekend on account of losing her job/insurance. She will be receiving severance pay which she is pleased about. She says the program was really super...it's been a reaffirming environment She feels ready to discharge at this time as she has a number of things to attend to. Plans to attend [facility], noting that she has engaged in DBT over 20 years ago and feels she is due for a tune-up . Reports no acute issues or concerns. Medication compliant, medications well- tolerated. Denies any adverse effects.? Mood is stable.? Denies any hopelessness or SI. Denies thoughts of harming self or others at this time. Denies any aggressive ideation or HI. Denies any paranoia or AH or VH. Sleep, appetite, energy stable. Medication Compliance: Yes Side effects from medications: No Attending Groups: Yes Review of Systems Acute medical concerns: No Mental Status Exam Mental Status Exam Narrative: Alert, oriented, in no acute distress. No psychomotor agitation or neurovegetative retardation. Eye contact maintained. Mood stable, affect full range, reactive. Speech normal. Thought process linear, coherent. Thought content related to stressors, future oriented, denies any helplessness, hopelessness or passive SI. Denies aggressive ideation or HI. No paranoia or delusional content elicited. No evidence of psychosis. Insight and judgment impaired. 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 Patient educated on: diagnosis and medication risk/benefits Informed Consent: understands Reason for contiued partial hosp. stay Substantial Risk for: stable for discharge Certification I certify that the patient needs [facility] Services for a minimum of 9 hours per week of therapeutic services. I certify the patient is experiencing symptoms of such intensity that they are unable to be safely treated in a less intensive setting and would otherwise require admission to a more intensive level of care. Total time managing care of this patient today __30__ minutes. Discharge Plan Discharge Attending provider: Rosa Campbell Medications: New nicotine 21 mg/24 hr patch 24 hour 1 patch transdermal Q24H Qty: 14 0RF Continued albuterol sulfate 2.5 mg /3 mL (0.083 %) solution for nebulization 2.5 mg inhalation BID 30 Days Qty: 180 11RF albuterol sulfate 90 mcg/actuation HFA aerosol inhaler 2 puff PO Q4-6H PRN (Reason: for wheezing) Qty: 1 12RF desloratadine 5 mg tablet 5 mg PO BID Qty: 180 0RF Nucala 100 mg/mL auto-injector 100 mg subcut Q4W 28 Days Qty: 1 11RF memantine 21 mg capsule,sprinkle,ER 24hr 21 mg PO DAILY quetiapine [Seroquel] 25 mg Tablet 12.5 mg PO BEDTIME Patient Comments: Patient stated her prescriber decreased dose from 25 mg to 12.5 mg d/t daytime sedation. methylphenidate HCl 5 mg Tablet 5 mg PO BID Pancreaze 10,500-35,500- 61,500 unit capsule,delayed release(DR/EC) 1 cap PO TID alprazolam [Xanax] 0.5 mg Tablet 0.5 mg PO BEDTIME PRN (Reason: Anxiety) Patient Comments: Patient reports last dose last week. Gets periodic prescriptions. Rx Instructions: Last filled July 2023 telmisartan 40 mg tablet 40 mg PO DAILY Stiolto Respimat 2.5-2.5 mcg/actuation mist 2 puff inhalation DAILY Discontinued nicotine [Nicoderm CQ] 14 mg/24 hr patch 24 hour 1 patch transdermal QAM 14 Days Qty: 14 0RF Rx Instructions: remove patch daily at night Print Language: Slovenian
== END 2023-10-29 23:59 | disposition home or self-care (01) ==
LOC: HO.IOP 09:15
PROVIDERS: Visit Provider Psychiatry & Neurology Psychiatry
DX: F33.9 Major depressive disorder, recurrent, unspecified (principal); F34.0 Cyclothymic disorder; F41.1 Generalized anxiety disorder; F43.12 Post-traumatic stress disorder, chronic; F69 Unspecified disorder of adult personality and behavior; F48.9 Nonpsychotic mental disorder, unspecified; Z79.899 Other long term (current) drug therapy
CPT/HCPCS: 90791; S9480

== ENCOUNTER 2023-12-17 10:47 | Outpatient (REF) | payer MEDICAID, SELFPAY ==
--- NOTE | ~2023-12-17 | CT_ITS ---
EXAMINATION: CT LOW-DOSE SCREENING CHEST WITHOUT CONTRAST CLINICAL INFORMATION: Nicotine dependence, cigarettes, uncomplicated. The patient is a current smoker with a 33 pack-year history of smoking. COMPARISON: CT chest 10/09/2021. TECHNIQUE: Multidetector volumetric CT imaging of the chest is performed on a Siemens SOMATOM Definition scanner without contrast using low dose technique. Additional 2D coronal and sagittal reformatted images and axial 3D maximum intensity projection (MIP) images are generated on the CT workstation. This CT examination was performed using dose optimization techniques as appropriate, variously including the following: *Automated exposure control *Adjustment of mA and/or kV according to patient size (this includes techniques or standardized protocols for targeted exams where dose is matched to indication/reason for exam; i.e. extremities or head) *Use of iterative reconstruction technique TOTAL EXAM DLP: 36 mGy-cm. CTDIvol: 1.02 mGy. FINDINGS: PULMONARY NODULES: There is a single small 2.6 mm nodule present in the right lower lobe medially, unchanged from prior (5:337) compare prior 8:149). There is no new, increasing-sized or suspicious lung nodule seen. LUNGS: Lungs bilaterally symmetrically expanded. Mild emphysema and bronchial thickening without bronchiectasis. No effusion or pneumothorax. Central airways patent. MEDIASTINUM: No mediastinal, hilar or axillary adenopathy or free fluid collection. CORONARY ARTERY CALCIFICATION: Mild. THYROID GLAND: Unremarkable to the extent seen. CARDIOVASCULAR STRUCTURES: Aortic and heart size normal. No pericardial effusion. CHEST WALL/AXILLA: Unremarkable. UPPER ABDOMEN: Prior surgery at the GE junction. Included portions of the solid organs in the upper abdomen unremarkable on noncontrast imaging. OSSEOUS STRUCTURES: No suspicious focal findings. CT/CT lung screening IMPRESSION: No finding present suspicious for malignancy. ASSESSMENT: 1. Lung-RADS Category 2: Benign appearance or behavior of nodules. N/A 2. Lung-RADS Category S: Negative. There are no clinically significant or potentially clinically significant findings not related to the lungs requiring urgent additional evaluation. RECOMMENDATION: Continued routine annual low-dose CT lung screening in 1 year is recommended. An order for CT CHEST LOW DOSE CANCER SCREENING ([id number]) can be placed. Electronically signed by: Juan Manuel Rogers MD 01/21/2024 12:00 PM EDT
== END 2023-12-17 10:48 | disposition home or self-care (01) ==
LOC: HO.CT 10:47
PROVIDERS: PCP Internal Medicine; Visit Provider Physician Assistant Medical
DX: Z12.2 Encounter for screening for malignant neoplasm of respiratory organs (principal); F17.210 Nicotine dependence, cigarettes, uncomplicated
CPT/HCPCS: 71271

== ENCOUNTER 2023-12-24 12:55 | Outpatient (AMB) | payer MEDICAID, SELFPAY ==
--- NOTE | 2023-12-31 10:18 | A.OFFVIS_ITS ---
Intake Visit Reasons: Current Smoker Allergies warfarin Allergy (Severe, Verified 09/29/23 09:24) BP Drop codeine [CODEINE] Allergy (Unknown, Verified 09/29/23 09:24) ITCHING aspirin [ASPIRIN] Adverse Reaction (Unknown, Verified 09/29/23 09:24) STOMACH UPSET Jwbauxx-ADZ-LiB Reductase Inhibitor [HWLWELW-PPQ-ERZ REDUCTASE INHIBITOR] Adverse Reaction (Unknown, Verified 09/29/23 09:24) MYALGIA HPI HPI Current Smoker: Details: Initial telehealth SDM visit via phone 12/24/23 58yo smoker with a 27PYH. She started smoking at 19yo. Smoked 1ppd for 25 years till age 44 then quit for 10 years. She then restarted at 1/2ppd. . Denies marijuana use. Denies second hand smoke exposure. Denies exposure to chemicals or substances like asbestos. . Denies known family history of lung cancer. Denies personal history of cancers. Denies chest CT in last year. Prior CT done at [facility] - noted stable right lung nodules on 07/17/20. She had her LDCT scan done 12/17/23 pending read. . Denies recent travel outside the [place]. Denies recent respiratory illness or recent hospitalization for respiratory issues. Denies testing positive for COVID. Admits receiving COVID Vaccine. . Denies fever, chills, new/worsening cough, hemoptysis, hoarseness or dysphagia. Denies significant chest pain, significant dyspnea or unintentional weight loss. Patient Lung Cancer Screening Questionnaire reviewed with patient by provider. . Shared Decision Making Completed. Patient meets criteria. Discussed in detail with patient, the risk vs benefit of LDCT screening. Patient consents to proceed with scan. Discussed smoking cessation. [facility] Medical History (Updated 12/31/23 @ 10:22 by Rossy Esposito PA-C) Cystic fibrosis EDS (Bhupendra-Danlos syndrome) Primary immunodeficiency disorder Hypogammaglobulinemia Pancreatic insufficiency Asthma-COPD overlap syndrome Nuclear sclerosis Asthma COPD (chronic obstructive pulmonary disease) Pulmonary nodules Atelectasis CHRISTOPHER (obstructive sleep apnea) Nicotine dependence, cigarettes, uncomplicated Chronic post-traumatic stress disorder History of hypertension GERD (gastroesophageal reflux disease) History of headache Hiatal hernia Posterior vitreous detachment Epiretinal membrane Surgical History (Updated 11/25/23 @ 16:05 by Rossy Esposito PA-C) History of colonoscopy History of foot surgery History of total hysterectomy Social History (Updated 12/31/23 @ 10:23 by Rossy Esposito PA-C) Household Members: Other Household Members Other:: 2 cats and one dog Patient Tobacco Use Status: Current everyday Tobacco user Tobacco use type: Cigarette Years Smoked: (onset 19yo, 1ppd x 25yrs, quit for 10, restarted now at 1/2ppd) Quality Reporting (2019) Adult ([facility] 138/06/24/68) Smoking risk assessment performed?: Yes Patient Tobacco Use Status: Current everyday Tobacco user Telehealth Telehealth Telehealth Platform: Telephone Location of provider rendering services: practice address Location of patient: address on file Patient Identification confirmed using: Name, : Yes Telehealth method: voice only Patient verbally consented to treatment: Yes Patient verbally consented to billing insurance company: Yes Patient informed of any privacy concerns related to visit: Yes Minutes spent on Phone/Video with Pt.: 15 Assessment & Plan Assessment & Plan (1) Nicotine dependence, cigarettes, uncomplicated: Comment: (current smoker -onset 19yo, 1ppd till 44yo then quit 10yrs then restarted now 1/2ppd - 27pyh) Code(s): F17.210 - Nicotine dependence, cigarettes, uncomplicated Category: Medical Plan: - Telehealth SDM visit completed 12/24/23 via phone. - Patient meets criteria for LDCT for lung cancer screening purposes and is asymptomatic. - Smoking cessation counseling offered. Patients can always call [phone]. - Will arrange for a LDCT scan of the chest for screening purposes at [facility]. - Risks, benefits, and alternatives were discussed in detail and the patient agrees to proceed. - Risks discussed include but are not limited to: radiation exposure, anxiety during testing and while awaiting results, false negatives, false positives and possibility of additional intervention such as further imaging or surgical procedures for benign disease. - Benefits are obviously detection of lung cancer at an early stage which can lead to improved outcomes. - Discussed the importance of screening program compliance with adherence to yearly LDCT scan as scheduled - or sooner interval scans for personalized screening regimen. - Discussed follow up plan. Our office will send a letter discussing results and if needed set up phone call and office visit based on CT findings. - Patient educated on results categorization and the management decisions for suspicious findings potentially found on the screening LDCT scan. Any patient with a Lung RADS score of 3 or 4 will be reviewed by a multidisciplinary team at [facility] to form a plan of action in regards to scan findings. - If further work up is warranted for a suspicious lung finding this will be followed by the Lung Cancer Screening program in conjunction with the Thoracic Surgery Department at [facility]. - A copy of the office note and LDCT will be sent to the patient's PCP - as well as documentation on any associated further plans of care. - Incidental findings on LDCT are the PCP's responsibility. These findings are indicated with an S finding on the LDCT Assessment. A note discussing the findings will be sent to the PCP who is then responsible for further management. - All questions answered.? Coding Level of Care Code Lung Cancer Screening [id number] Diagnoses Nicotine dependence, cigarettes, uncomplicated F17.210
== END 2023-12-24 12:55 | disposition home or self-care (01) ==
LOC: HO.HPS 12:55
PROVIDERS: PCP Internal Medicine; Referring Provider Hospitalist; Visit Provider Physician Assistant Medical
DX: F17.210 Nicotine dependence, cigarettes, uncomplicated (principal)
CPT/HCPCS: G0296

== ENCOUNTER → 2023-12-24 12:55 | Outpatient (BNVA) | payer MEDICAID, SELFPAY | PROVIDERS: PCP Internal Medicine; Visit Provider Physician Assistant Medical | DX: F17.210 Nicotine dependence, cigarettes, uncomplicated (principal); Z71.89 Other specified counseling | CPT/HCPCS: G0296 ==

== ENCOUNTER 2024-03-21 14:51 | Outpatient (AMB) | payer MEDICAID, SELFPAY ==
--- NOTE | 2024-03-21 15:01 | A.OFFVIS_ITS ---
Vital Signs 03/21/24 15:02 Height 5 ft 6 in Weight 119 lb 0.794 oz BMI 19.2 BP 122/76 Blood Pressure Location Rt brachial Position Sitting Pulse 63 Pulse Source Pulse Oximeter Pulse Oximetry (%) 99 Oxygen Delivery Method Room Air Intake Visit Reasons: Asthma Allergies warfarin Allergy (Severe, Verified 03/21/24 15:06) BP Drop codeine [CODEINE] Allergy (Unknown, Verified 03/21/24 15:06) ITCHING aspirin [ASPIRIN] Adverse Reaction (Unknown, Verified 03/21/24 15:06) STOMACH UPSET Fkbkrqe-FBB-ClY Reductase Inhibitor [YYDPXVY-GAX-PKB REDUCTASE INHIBITOR] Adverse Reaction (Unknown, Verified 03/21/24 15:06) MYALGIA HPI Comments Details: The patient is a 59-year-old woman with a known history of asthma and COPD who h as been having worsening shortness of breath. Overall her breathing is better at this time. She does have Symbicort that she uses. She stopped using the Spiriva at this time. She has noticed that her symptoms are worse usually during the late summer early fall with the different allergy sees. Or she was concerned about overnight hypoxia up so therefore she underwent a 3 night overnight oximetry. He did demonstrate some episodic hypoxia but it was likely inaccurate as it appeared and grafted day were not recording any actual reliable data. Therefore, based on those 3 studies there doesn't appear to be in significant hypoxia to have to treat at this time. She denies any headaches or daytime drowsiness any way. She is still being evaluated for the EDS. The patient did very well with pulmonary rehabilitation. She only had for classes to complete her phase 2 course. Her insurance changed at this time. Will see if we could try to have her complete the program with her insurance. 08/01/2021 the patient is here for a pulmonary follow-up visit. Since we last spoke she did go to [place] to be evaluated for the abnormal sweat test. She will have that repeated and she will have genetic testing for cystic fibrosis as well. The suspicion that she has cystic fibrosis or variants is very low. In the meantime she continues use respiratory therapy. The patient has not required any prednisone or her short-acting beta agonist. She has been having issues with daytime drowsiness. She does have snoring at nighttime and also has headaches in the morning. Her [place] score is elevated 04/25. Will request a home sleep study at this time. 10/06/2021 the patient is here for a pulmonary follow-up visit. Since we last spoke the patient did follow up in [place] with the cystic fibrosis clinic. 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 She does have multiple organ involvement now on pancreatic enzymes for her pancreatic insufficiency and also complaining of significant weight loss. She is having respiratory issues with chronic bronchitis and very difficult to expectorate mucus plugs. Indeed this is consistent with her diagnosis of cystic fibrosis. If she needs more aggressive chest physical therapy. She would like to try the hypertonic saline. She also has an Acapella valve. Will continue using that for now. We will request a CT scan of the chest to further address her airway disease and potential bronchiectasis. Will request high-resolution cuts to further address that. In the meantime we need to follow-up with pulmonary nodules specially with her significant weight loss. She did have a chest x-ray which was without any acute disease back in July 2021 which was done local hospital. At this point the CT scan will be necessary to further address her ongoing symptoms her new diagnosis of cystic fibrosis in addition to her underlying pulmonary nodules. 11/11/2021 the patient is here for pulmonary follow-up visit. Overall the patient has been doing well. Initially she was having worsening respiratory symptoms specially at nighttime. She was waking up short of breath with coughing wheezing. She would have to use her inhaler. She will be due desperate to set up for the nebulizer. She has been using the Alvesco and also the Stiolto. She also has been using the nebulizer about once a day. Once the patient started taking the azithromycin as prescribed her symptoms did improve. She will continue to take the azithromycin 3 times a week in order to treat for her chronic bronchitis and CFTR related disease. The patient also has a low IgG level based on her recent blood work. Therefore she does have some hypogammaglobulinemia. But her levels are slightly decreased and she is responding to the azithromycin 3 times a week. Therefore I would have her hold off on considering IVIG infusions unless she develops worsenign respiratory symptoms. We did talk about reflux disease and making sure that she sleeps elevated. She will looking to getting risers for the bed to try to minimize potential pharyngeal laryngeal penetration in the meantime she did undergo her CT scan of the chest with high-resolution cuts. I personally reviewed the CT scan. She does have some thickening of the airways and some areas suggesting of chronic bronchitis. She also has bronchiectatic changes primarily on the left base. These are minimal changes. Patient also has some evidence of emphysema primarily in the upper lung zones. Subcentimeter pulmonary nodules are also identified. 02/17/2022 the patient is here for pulmonary follow-up visit. She is having worsening respiratory symptoms. She had recovered from her COVID syndrome several weeks ago when she was back to her baseline. Then she started developing nasal congestion and cough. Subsequently after that she started developing wheezing. She had significant allergies in the past. She had allergy testing and had an asphalt paver operator that had been providing her with immunotherapy. However, she is no longer following up with that group. The patient did have significant wheezing on examination. She will need additional prednisone. In addition to that her PFTs to demonstrated mild obstruction which indeed could be uncontrolled asthma. The patient also has pulmonary nodules th erefore will also reassess for a hyper sensitivity reaction. She continues to take the pancreas and is increasing her caloric intake. She has been able to maintain her weight and her BMI around 18-19. In view of the worsening respiratory symptoms and recurrent flare ups we need to readdress the question of her low IgG levels. Therefore, we are request allergy testing and IgG levels it is time to see if she has a candidate for any additional therapies. 03/17/2022 the patient is here for a pulmonary follow-up visit. Since we last spoke the patient apparently received her flu and also her COVID-19 booster. In addition to that she started a new medication Fasenra. She started developing a reaction to the medication with evidence of angioedema and some shortness of breath. She did call our office to be evaluated. We did try to call her back but no answer. Fortunately she was able to talk to her primary care doctor. She was placed on prednisone. Patient is doing better now. She still has some evidence of injury edema. She does have an EpiPen available in case her symptoms worsen. She did take a small dose of prednisone unfortunately the prednisone does cause her significant irritability and also Effexor sleep. The patient still having some wheezing on examination I do believe that she may do better with Medrol. Therefore I will send Medrol to the pharmacy. The patient may also benefit from Racemic epi. The patient can get that [id number], Primamist. the patient does not feel that it was likely the Fasenra. Although she should premedicate before her next dose. The patient is concerned about the persistent hypogammaglobulinemia. In view of her significant conditions the patient would like to be evaluated for IVIG. The patient does have a very complicated medical history and I do believe the best way to further evaluate her immunodeficiency would be to refer her to Allergy and Immunology. 07/10/2022 the patient has a telephone visit today. Recently the patient had a sick contact while flying back from her [place]. She developed laryngitis and subsequently developed the cough and chest congestion and bronchitis. It definitely activated her asthma. The patient started some prednisone that she had left over. In addition to that she doubled up on the azithromycin. Clinically she is doing a little better but she still having hard time with breathing and coughing. Also no additional medication at this time. Her mucus that was thicker and yellow in color. She is concerned of a bacterial infection that is not clearing up with the azithromycin. Therefore we talked about sending a quinolone. She is aware that she needs to monitor closely for any tendinitis. In addition to that she did follow up with immunology. Due to her immunodeficiency and hypogammaglobulinemia was felt that she should start IVIG. She should be doing that in the coming weeks. She also continues some Fasenra injections. Initially was extremely helpful for her for her asthma. However, lately is not lasting the duration that he should. She is wondering if she should switch to a different biologic. She was wondering about Nucala. I did recommend that she speak to her asphalt paver operator about it. I do believe that test prior may be a very good option as well. In the meantime she is going to continue with current respiratory therapy. She undergo pulmonary function studies before going to the [facility] the cystic fibrosis clinic. She is open to transfer over to the heart for 1 which is a little closer to her. 06/24/2023 the patient is here for a pulmonary follow-up visit. The patient has been having worsening asthma symptoms. She did receive a prescription for Medrol which did improve her symptoms. She is still having some wheezing at times. She is weaning still from the Medrol. She continues using her respiratory therapy. The patient needs to go back on inhaled steroid. She had tried multiple inhalers in the past including Flovent, Asmanex could not tolerate it due to adverse effects including thrush. She can not tolerate the powder inhalers. The only inhaled steroid that works for her Alvesco. I will request that went from her at this time. In addition to that she had responded very well to the Fasenra injections but they were then not helpful. She then went to allergy immunology and was prescribed Tezspire. Unfortunately that resulted in worsening infections and worsening respiratory symptoms and GI adverse effects. Therefore she stopped it. Now with worsening asthma symptoms and her significant eosinophilia it will be reasonable to try her on Nucala. Nucala be once a month and therefore be more effective for her. Currently she is on steroids over would have to wait for her to wean off the steroids to check her eosinophil level. The last time we checked it was back in 2021 and her absolute eosinophils worsens 100. the patient also has a immunodeficiency and currently receiving IgG therapy with allergy immunology. The therapy has been affecting beneficial. 09/29/2023 The patient is here for a pulmonary follow up visit. She is doing well now that she started the Nucala. She denies any significant advere reactions. She is having increasing allergy symptoms and has been taking the xyzol. She is also having the IgG augmentation therapy that has been effective and beneficial. She continues with her maintenance inhalers. Has not requiered any prednisone which is very reassuring. The patient is a former smoker and had been on the LDCT program, but not surrently. I will refer her back. In the meantime she will alse need to have PFTs this summer. 03/21/2024 the patient is here for a pulmonary follow-up visit. The patient overall has been doing very well from a respiratory status. A Nucala injections every very affecting beneficial. Has not had any reactions to them and they are working just fine. As far as her allergy testing she is doing the Clarinex that also seems to be helping with her allergies. The IVIG has been affecting beneficial and she continues to receive the regularly. In addition to that she has not required any prednisone which is reassuring. Although the summer she did have a low-dose CT scan which we did review. It was considered rads 2 without any significant findings. The patient also had PFTs at [facility] which we personally reviewed demonstrating a mild degree of infection consistent with mild COPD. She does have a trend of hyperinflation and a significant amount of air trapping. She is going to start an exercise regimen is going to work on breathing techniques to help her with the air trapping will follow-up in 6-8 months if she has any issues she will call for an earlier assessment should [facility] Medical History (Updated 12/31/23 @ 10:22 by Rossy Esposito PA-C) Cystic fibrosis EDS (Bhupendra-Danlos syndrome) Primary immunodeficiency disorder Hypogammaglobulinemia Pancreatic insufficiency Asthma-COPD overlap syndrome Nuclear sclerosis Asthma COPD (chronic obstructive pulmonary disease) Pulmonary nodules Atelectasis CHRISTOPHER (obstructive sleep apnea) Nicotine dependence, cigarettes, uncomplicated Chronic post-traumatic stress disorder History of hypertension GERD (gastroesophageal reflux disease) History of headache Hiatal hernia Posterior vitreous detachment Epiretinal membrane Surgical History (Updated 11/25/23 @ 16:05 by Rossy Esposito PA-C) History of colonoscopy History of foot surgery History of total hysterectomy Social History Household Members: Other Household Members Other:: 2 cats and one dog Patient Tobacco Use Status: Current everyday Tobacco user Tobacco use type: Cigarette Years Smoked: (onset 19yo, 1ppd x 25yrs, quit for 10, restarted now at 1/2ppd) Review of Systems Const Denies night sweats and Reports weight loss Eyes Denies change in vision ENT Denies change in voice, Reports lip swelling, Denies mouth pain, Reports nasal congestion, Reports nasal discharge, Reports post nasal drip and Denies tongue swelling Card Denies chest pain, Denies dyspnea and Reports dyspnea on exertion Resp Denies chest congestion, Reports cough, Denies pain on inspiration, Denies pain with cough, Denies dyspnea, Reports dyspnea on exertion and Denies wheezing GI Reports heartburn Musc Denies no additional complaints Neuro Denies Neuro-related abnormal movements Psych Denies no additional complaints Facundo/Lymph Denies easy bleeding and Denies lymphadenopathy Aller/Immun Reports lip swelling, Denies tongue swelling and Denies wheezing Physical Exam Vital Signs: Last Vital Signs Pulse 63 03/21/24 15:02 BP 122/76 03/21/24 15:02 Pulse Ox 99 03/21/24 15:02 Oxygen Delivery Method Room Air 03/21/24 15:02 BMI result Body Mass Index 19.2 Const General: alert HEENT Face and sinus: Yes erythema and Yes edema Mouth: lip abnormal Neck Neck: Yes full ROM Chest Chest palpation & inspection: normal inspection of the chest Resp Effort & Inspection: normal respiratory effort and No prolonged expiratory phase Auscultation: no wheezes and diminished lung sounds Cardio Rate: regular rate Rhythm: regular rhythm Heart sounds: S1 normal heart sound present and S2 normal heart sound present GI Palpation (GI): Tenderness to palpation present (GI) (distended and tesnder on the lower quadrents) Auscultation: normal bowel sounds Skin General skin exam: rashes and/or lesions noted Quality Reporting (2019) Adult ([facility] 138/06/24/68) Smoking risk assessment performed?: Yes Patient Tobacco Use Status: Current everyday Tobacco user Assessment & Plan Assessment & Plan (1) Asthma: Comment: eosinophilic asthma Code(s): J45.909 - Unspecified asthma, uncomplicated Category: Medical Qualifiers: Asthma complication type: with acute exacerbation Asthma persistence: persistent Asthma severity: severe Qualified Code(s): J45.51 - Severe persistent asthma with (acute) exacerbation (2) Cystic fibrosis: Comment: +sweat test x 2, +genetic testing Code(s): E84.9 - Cystic fibrosis, unspecified Category: Medical (3) Pulmonary nodules: Comment: (stable right lung nodules on 07/17/[address] @ [facility]) Code(s): R91.8 - Other nonspecific abnormal finding of lung field Category: Medical (4) EDS (Bhupendra-Danlos syndrome): Code(s): Q79.60 - Bhupendra-Danlos syndrome, unspecified Category: Medical (5) Hypogammaglobulinemia: Code(s): D80.1 - Nonfamilial hypogammaglobulinemia Category: Medical (6) Screening for lung cancer: Code(s): Z12.2 - Encounter for screening for malignant neoplasm of respiratory organs Category: Medical (7) Tobacco dependence in remission: Code(s): F17.201 - Nicotine dependence, unspecified, in remission Category: Medical (8) Asthma-COPD overlap syndrome: Code(s): J44.9 - Chronic obstructive pulmonary disease, unspecified Category: Medical Plan IgG therapy continue CPT with hypertonic saline 7% and acapella valve Continue Alvesco/Stiolto SHARDA as needed (Xopenex) continue Nucala LDCT program reflux diet HOB elevated increase exercise breathing exercises, harmonica F/U 6 months Coding Level of Care Code Est Pt Level 4 (87959) Complex EM visit Add On G2211 Diagnoses Severe persistent asthma with acute exacerbation J45.51 Asthma complication type: with acute exacerbation Asthma persistence: persistent Asthma severity: severe Cystic fibrosis E84.9 Pulmonary nodules R91.8 EDS (Bhupendra-Danlos syndrome) Q79.60 Hypogammaglobulinemia D80.1 Screening for lung cancer Z12.2 Tobacco dependence in remission F17.201 Asthma-COPD overlap syndrome J44.9 Time Spent (min) 17
[2024-03-21 15:02] VITALS: BP 122/76; PULSE 63; O2SAT 99; BMI 19.2
== END 2024-03-21 15:45 | disposition home or self-care (01) ==
PROVIDERS: PCP Internal Medicine; Visit Provider Hospitalist
DX: J45.51 Severe persistent asthma with (acute) exacerbation (principal); E84.9 Cystic fibrosis, unspecified; R91.8 Other nonspecific abnormal finding of lung field; Q79.60 Ehlers-Danlos syndrome, unspecified; D80.1 Nonfamilial hypogammaglobulinemia; Z12.2 Encounter for screening for malignant neoplasm of respiratory organs; F17.201 Nicotine dependence, unspecified, in remission; J44.9 Chronic obstructive pulmonary disease, unspecified
CPT/HCPCS: 99214

== ENCOUNTER → 2024-03-21 14:51 | Outpatient (BNVA) | payer MEDICAID, SELFPAY | PROVIDERS: PCP Internal Medicine; Visit Provider Hospitalist | DX: Z23 Encounter for immunization (principal); J45.51 Severe persistent asthma with (acute) exacerbation; R91.8 Other nonspecific abnormal finding of lung field; E84.9 Cystic fibrosis, unspecified; Q79.60 Ehlers-Danlos syndrome, unspecified; D80.1 Nonfamilial hypogammaglobulinemia; Z12.2 Encounter for screening for malignant neoplasm of respiratory organs; F17.201 Nicotine dependence, unspecified, in remission; J44.9 Chronic obstructive pulmonary disease, unspecified | CPT/HCPCS: 90471; 90656; 99212 ==

== ENCOUNTER → 2024-06-28 09:45 | Outpatient (BNV) | payer OTHER, SELFPAY | PROVIDERS: Visit Provider Psychiatry & Neurology Psychiatry | DX: F33.2 Major depressive disorder, recurrent severe without psychotic features (principal); F41.1 Generalized anxiety disorder; F45.42 Pain disorder with related psychological factors; F84.8 Other pervasive developmental disorders; F60.9 Personality disorder, unspecified | CPT/HCPCS: 90834 ==

== ENCOUNTER → 2024-06-30 08:31 | Outpatient (REF) | payer MEDICAID, SELFPAY ==
--- NOTE | 2024-06-30 08:52 | ECG_ITS ---
Test Reason : F33.9 F41.9 R/O QTC Blood Pressure : */* mmHG Vent. Rate : 67 BPM Atrial Rate : 67 BPM P-R Int : 140 ms QRS Dur : 88 ms QT Int : 408 ms P-R-T Axes : 77 27 35 degrees QTcB Int : 431 ms Normal sinus rhythm Normal ECG No previous ECGs available Referred By: Rosa Campbell Electronically Signed By: Ata Calderon
[2024-06-30 08:53] LABS: MANUAL DIFF FLAG NO
[2024-06-30 09:16] LABS: Basophils Percent Auto 0.6 % (0-2); Eosinophils Percent Auto 0.6 % (0-4); Hematocrit 40.3 % (37.0-47.0); Hemoglobin 13.1 g/dl (12.0-16.0); Imm Gran Abs Auto 0.01 X10*3/uL (0.00-0.03); Imm Gran Pct Auto 0.1 % (0.0-0.4); Lymphocytes Absolute Auto 2.1 X10*3/uL (1.2-4.9); Mean Corpuscular HGB Conc 32.5 g/dl (31.0-35.0); Mean Corpuscular Hemoglobin 28.3 pg (27.0-33.0); Monocytes Absolute Auto 0.5 X10*3/uL (0.1-1.2); Monocytes Percent Auto 6.4 % (2-11); Neutrophils Absolute Auto 4.4 x10*3/uL (2.0-8.3); Neutrophils Percent Auto 62.3 % (45-73); Platelet Count 224 X10*3/uL (160-400); Red Blood Count 4.63 X10*6/uL (4.20-5.50); Red Cell Distribution Width 12.5 % (11.0-16.0); White Blood Count 7.1 X10*3/uL (4.8-10.8)
[2024-06-30 09:22] LABS: Estimated Average Glucose 108 mg/dL; Hemoglobin A1C 122.9471 umol/L; Hemoglobin A1c % 5.4 % (<6.0); Total Hemoglobin (HGBA1C) 3449.3601 umol/L
[2024-06-30 09:50] LABS: Magnesium 1.8 mg/dL (1.6-2.6)
[2024-06-30 09:55] LABS: Erythrocyte Sedimentation Rate 2 MM/HR (0-20)
[2024-06-30 09:58] LABS: Vitamin D 25-OH Total 46.9 ng/mL (>30)
[2024-06-30 09:59] LABS: Alanine Aminotransferase 20 U/L (0-31); Alkaline Phosphatase 66 U/L (39-117); Anion Gap 10 (12-20); Aspartate Amino Transferase 24 U/L (5-31); Bilirubin Total 0.5 mg/dL (0.0-1.0); Blood Urea Nitrogen 16 mg/dL (9-16); C Reactive Protein < 0.04 mg/dL (< or = 0.50); Calcium 9.2 mg/dL (8.4-10.2); Carbon Dioxide 29 mmol/L (22-29); Chloride 107 mmol/L (96-108); Cholesterol 197 mg/dL (<200); Estimated Glomerular Filt Rate > 60; Glucose Fasting 97 mg/dL (60-99); HDL Cholesterol 75 mg/dL (>40); Iron 129 mcg/dL (30-160); LDL Cholesterol Calculated 87 mg/dL (<100); Percent Iron Saturation 43 % (15-50); Potassium 3.6 mmol/L (3.3-5.1); Sodium 142 mmol/L (135-145); Total Iron Binding Capacity 297 mcg/dL (228-428); Total Protein 6.6 g/dL (6.5-8.0); Triglycerides 176 mg/dL (<150); Unsaturated Iron Binding 168 ug/dL
[2024-06-30 10:02] LABS: Free T4 (Free Thyroxine) 0.94 ng/dL (0.71-1.85); Thyroid Stimulating Hormone 3.96 uIU/mL (0.32-4.0)
[2024-06-30 10:18] LABS: Folate 10.5 ng/mL (> or = 4.0); Vitamin B12 546 pg/mL (200-900)
[2024-07-03 17:47] LABS: Homocysteine 4.2 umol/L (<10.4)
[2024-07-04 17:38] LABS: Methylmalonic Acid 118 nmol/L (55-335)
[2024-07-05 06:44] LABS: Vitamin B6 27.4 ng/mL (2.1-21.7)
== END ==
LOC: HO.CARD 08:31
PROVIDERS: PCP Internal Medicine; Visit Provider Psychiatry & Neurology Psychiatry
DX: F33.9 Major depressive disorder, recurrent, unspecified (principal); F41.9 Anxiety disorder, unspecified
CPT/HCPCS: 36415; 80053; 80061; 82306; 82550; 82607; 82746; 83036; 83090; 83540; 83735; 83921; 84207; 84425; 84439; 84443; 85025; 85652; 86140; 93005

== ENCOUNTER → 2024-06-30 08:52 | Outpatient (BNV) | payer MEDICAID, SELFPAY | PROVIDERS: PCP Internal Medicine; Visit Provider Internal Medicine Cardiovascular Disease | DX: I45.9 Conduction disorder, unspecified (principal) | CPT/HCPCS: 93010 ==

== ENCOUNTER 2024-07-07 14:18 | Outpatient (REF) | payer MEDICAID, SELFPAY ==
[2024-07-07 15:19] LABS: Troponin-I High Sensitivity < 2.7 ng/L (<3.5-17.0)
== END 2024-07-07 14:19 | disposition home or self-care (01) ==
LOC: HO.LAB 14:18
PROVIDERS: PCP Internal Medicine; Visit Provider Internal Medicine
DX: F32.9 Major depressive disorder, single episode, unspecified (principal); F84.0 Autistic disorder; R07.89 Other chest pain
CPT/HCPCS: 36415; 84484

== ENCOUNTER 2024-07-17 10:00 | Outpatient (RCR) | payer OTHER, SELFPAY ==
[2024-06-26 11:57] VITALS: BP 110/66; PULSE 60; TEMP 36.7
[2024-06-26 11:59] VITALS: BMI 19.0
--- NOTE | 2024-06-26 14:38 | PC.ADMIT ---
Patient is a 59 year old partnered female who self referred to [facility] d/t increased depression and anxiety. She reports she was recently diagnosed with autism spectrum disorder and autistic burnout. She stated the diagnosis was helpful however it also brought up some issues where she has been reevaluating the past. She also reports stresses including being unemployed and having financial issues as a result. She is unsure if she will every be able to work again and is feeling overwhelmed with everything. She feels stuck in her life and in her relationship with her partner which can be triggering and challenging at times. She also reports she is in the process of being evicted from her apartment and is going through housing court. She also reports credit card dept and has been working on a financial plan. Patient is alert and oriented x4. She is calm and cooperative. She presented with depressed mood and anxious affect. She denied SI, no HI. She was given a copy of her safety plan if needed. Medications reconciled with patient and patient's pharmacy. Medication education provided.
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
--- NOTE | 2024-06-29 15:10 | HO.PHP ---
Client's case has been opened and reviewed in team.
--- NOTE | 2024-07-05 13:08 | HO.PHP ---
Jade reported in group 1 that she struggled with suicidal thoughts and referenced she had pills in her home and thoughts of taking the pills would pop into my mind when she experienced SI. Pt added the thoughts occurred because of her history of suicide attempts as a teenager by overdose on pills. Lisa was tearful when she spoke, stated a peer's comment about a recent loss to suicide made her think about this. After group commercial lines underwriter met with pt to assess for safety. Lisa stated her suicidal thoughts are passive, reports they are not constant and not daily but do occur when she is feeling hopeless and overcome with emotion. Lisa denied having SI thoughts today and currently. Lisa was asked about the thoughts she experiences when having SI, to take medications. Pt stated that she has no intent to act on those thoughts when they occur, reports the thoughts are fleeting and admitted she has experienced those thoughts at times throughout her life, stating but I'm not impulsive anymore, I would not act on it . Pt expressed awareness of the events and feelings that trigger thoughts of SI and said she came to [facility] to learn more tools to cope and to explore medications that can help her feel more emotionally stable. Injection Machine Operator suggested the removal of old medications from the home, pt declined, stating they are not trigger and denied a desire to misuse or intent to overdose on them. Pt stated her partner is currently staying at her home and identified her as a big support and positive distraction. Pt continued to speak at length with commercial lines underwriter, reflecting on some of her goals, her insights gained around her recent diagnosis of Autism and all the feelings it has opened up. Pt reported she also meets and discusses these matters with her therapist weekly. Lisa expressed appreciation to [facility] staff for checking in and verbally contracted for safety, stating she will report any increase in SI to [facility] staff and agreed to speak with crisis should develop a plan or intent.
--- NOTE | 2024-07-07 20:19 | P.PNPSP_ITS ---
Subjective Subjective Date of Service: 07/07/24 Reason For Visit: depression Interim History: ?Mostly down not all over the place, but thin-skinned with getting triggered easily which isn't unusual for me when I am under a lot of stress... Just been a lot more tearful, can not control my emotions and just been feeling really sad . She notes that a lot of her struggles come down to the toll her partner's mental health struggles have had on her own, noting that her partner also strugg les with ?being a borderline... it has left me feeling fried and triggered. I am just exhausted all the time?. She does not feel her medications are doing much for her at this time guanfacine which has been helpful was in has affected her IBS which initially was helpful in resolving some of her IBS-D however she feels she has switch now to IBS-C and feeling more constipated and general she is hop ing to switch she is hoping to start on Viibryd which she had with was previously on and had done well but caused some minor exacerbation in her IBS-D and is hoping at this time would be a good counterpoint to the guanfacine. She is open to trialing a mood stabilizer which I had previously approached her on in past admissions but was very open to trying this time. She also shares frustrations with cutting up her oral estradiol trying to find the right fraction of a tablet to take daily and is very sensitive to doses that are too high or too low. I suggest introducing a patch semi weekly basis by provide some stability in dosing will start on the lowest dose for now and see how she tolerates this and will discontinue oral estradiol she has had history of hysterectomy will not be starting progesterone. Sleep variable, appetite, energy low but unable to feel calm most of the time. Medication Compliance: Yes Side effects from medications: No Attending Groups: Yes Review of Systems Acute medical concerns: No Mental Status Exam Mental Status Exam Narrative: Alert, oriented, in no acute distress. Fidgety, anxious, distraught at moments. Unkempt grooming fair, hygiene intact.l Eye contact maintained. Mood depressed, anxious, affect dysphoric, tearful. Speech normal. Thought process linear, coherent. Thought content related to stressors, feeling helpless, hopeless, demoralized, reports transient passive SI but is denying any thoughts of giving up on life at this time.? Denies aggressive ideation or HI. No paranoia or delusional content elicited. No evidence of psychosis. Insight and judgment fair but adequate. Diagnostics Vital Signs (24Hr): BMI result Body Mass Index 19.0 Assessment & Plan Assessment & Plan (1) MDD (major depressive disorder), recurrent episode: Status: Acute Code(s): F33.9 - Major depressive disorder, recurrent, unspecified (2) CHAIM (generalized anxiety disorder): Status: Acute Code(s): F41.1 - Generalized anxiety disorder (3) Pain disorder associated with psychological factors and medical condition: Status: Acute Code(s): F45.42 - Pain disorder with related psychological factors (4) Other pervasive developmental disorders: Status: Acute Code(s): F84.8 - Other pervasive developmental disorders (5) Unspecified personality disorder: Status: Acute Code(s): F60.9 - Personality disorder, unspecified Plan continue PHP start Abilify 1-2 mg qhs start vilazodone 10 mg qd continue guanfacine ER 1 mg qd continue memantine ER 21 mg qd switch from po estradiol to estradiol transdermal patch (semiweekly) at start dose 0.025 mg on nicotine patch 21 mg/d continue other regular medications?- Ritalin 5 mg BID, desloratadine, alprazolam 0.5 mg qhs prn, albuterol prn, IgG solution, Zenpep, mepolizumab subq, Routine lab work reviewed - TSH borderline high, (could consider expanded TFTs) consider augmentation with low dose LT4 for depression EKG, routine for baseline QTc for medication considerations as indicated UDS as indicated VS (06/26/24): abrefile, BP 110/66; 60 bpm Continue to monitor Patient educated on: diagnosis and medication risk/benefits Informed Consent: understands Reason for contiued partial hosp. stay Substantial Risk for: inability to function, rapid decompensation and med/psych decompensation Certification I certify that partial hospital treatment is medically necessary due to the symptoms and problems resulting from the patient's mental illness and the failure to treat the patient at the partial hospital level of care would likely result in the patient requiring inpatient psychiatric care which could not be prevented at a less intensive level of care. Total time managing care of this patient today __30__ minutes. Discharge Plan Discharge Attending provider: Rosa Campbell Medications: New nicotine 21 mg/24 hr patch 24 hour 1 patch transdermal DAILY Qty: 14 0RF Rx Instructions: apply once daily in AM, remove patch daily at night vilazodone 10 mg tablet 10 mg PO DAILY Qty: 30 0RF Rx Instructions: must administer with a meal/food aripiprazole 2 mg tablet 2 mg PO BEDTIME Qty: 14 0RF estradiol 0.025 mg/24 hr patch semiweekly 1 patch transdermal 2XW Qty: 8 0RF Rx Instructions: apply 1 patch for 3 days alternating with 1 patch for 4 days each week No Action albuterol sulfate 90 mcg/actuation HFA aerosol inhaler 2 puff PO Q4-6H PRN (Reason: for wheezing) Qty: 1 12RF Nucala 100 mg/mL auto-injector 100 mg subcut Q4W 28 Days Qty: 1 11RF Rx Instructions: Last filled 03/11/24 #1. memantine 21 mg capsule,sprinkle,ER 24hr 21 mg PO DAILY trazodone 50 mg Tablet 50 mg PO BEDTIME guanfacine 1 mg Tablet 1 mg PO DAILY Zenpep 25,000-79,000- 105,000 unit capsule,delayed release(DR/EC) 2 cap PO TID Patient Comments: TAKE 2 CAPSULES BY MOUTH THREE TIMES DAILY (1 CAPSULE WITH MEAL AND 1 CAPSULE DURING MEAL ) Zenpep 10,000-32,000 -42,000 unit capsule,delayed release(DR/EC) See Rx Instructions .ROUTE .COMPLEX Rx Instructions: TAKE 1 CAPSULE BY MOUTH WITH SNACKS , LARGER SNACKS estradiol 1 mg Tablet 1 mg PO DAILY Rx Instructions: off 1 week; repeat cycle methylphenidate HCl 5 mg Tablet 5 mg PO BID alprazolam [Xanax] 0.5 mg Tablet 0.5 mg PO BEDTIME PRN (Reason: Anxiety) Patient Comments: Last took 1.5 weeks ago. Rx Instructions: Last filled October 26, 2023 #15 tabs. telmisartan 40 mg tablet 40 mg PO DAILY Rx Instructions: Last filled 12/03/23, 3 month supply. Xembify 10 gram/50 mL (20 %) solution 9,000 mg subcut QWEEK Rx Instructions: Pharmacy has no record-Per [facility] specialty pharmacy. desloratadine 5 mg tablet 5 mg PO BID Qty: 180 0RF Stand Alone Forms: Patient Portal Discharge page Print Language: [place]
--- NOTE | 2024-07-13 22:52 | HO.PHPPROGNO ---
Subjective Subjective Date of Service: 07/13/24 Reason For Visit: depression Interim History: Patient seen for follow-up. She continues with same complaints, feeling down, describes extreme mood lability, irritability, hypersensitivity, emotional reactivity. Robertfkatheryn is ready for pick-up but she has not gone yet to pick it up but plans to today. Vilazodone requires a PA, I encourage to start on the Robertfkatheryn as vilazodone may take a few days for authorization. Given her lability will hold off starting an antidepressant until mood stabilizer started. She would also like more Xanax, she was last filled 06/09 for #60. She says she still has some but just that it is easier for this continuity writer to fill the script. Nonetheless she was encouraged to reach out to outpt provider who has been the sole prescriber of this medication. Medication Compliance: Yes Side effects from medications: No Attending Groups: Yes Review of Systems Acute medical concerns: No Mental Status Exam Mental Status Exam Narrative: Alert, oriented, in no acute distress. Fidgety, anxious, distraught at moments. Unkempt grooming fair, hygiene intact.l Eye contact maintained. Mood depressed, anxious, affect dysphoric, tearful. Speech normal. Thought process linear, coherent. Thought content related to stressors, feeling helpless, hopeless, demoralized, reports transient passive SI but is denying any thoughts of giving up on life at this time.? Denies aggressive ideation or HI. No paranoia or delusional content elicited. No evidence of psychosis. Insight and judgment fair but adequate. 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 r/o bipolar spectrum mood dysregulation likely related to character, trauma and/or neurocognitive contributors (2) CHAIM (generalized anxiety disorder): Status: Acute Code(s): F41.1 - Generalized anxiety disorder (3) Pain disorder associated with psychological factors and medical condition: Status: Acute Code(s): F45.42 - Pain disorder with related psychological factors (4) Other pervasive developmental disorders: Status: Acute Code(s): F84.8 - Other pervasive developmental disorders Assessment and Plan: H/o ADHD and ASD dx in adulthood (5) Unspecified personality disorder: Status: Acute Code(s): F60.9 - Personality disorder, unspecified Plan continue PHP start Abilify 1-2 mg qhs hold off starting vilazodone continue guanfacine ER 1 mg qd continue memantine ER 21 mg qd increase estradiol transdermal patch (semiweekly) to 0.0375 mg on nicotine patch 21 mg/d continue other regular medications?- Ritalin 5 mg BID, desloratadine, alprazolam 0.5 mg qhs prn, albuterol prn, IgG solution, Zenpep, mepolizumab subq, Routine lab work reviewed - TSH borderline high, (could consider expanded TFTs) consider augmentation with low dose LT4 for depression EKG, routine for baseline QTc for medication considerations as indicated UDS as indicated VS (06/26/24): abrefile, BP 110/66; 60 bpm Continue to monitor Patient educated on: diagnosis and medication risk/benefits Reason for contiued partial hosp. stay Substantial Risk for: inability to function, rapid decompensation and med/psych decompensation Certification I certify that partial hospital treatment is medically necessary due to the symptoms and problems resulting from the patient's mental illness and the failure to treat the patient at the partial hospital level of care would likely result in the patient requiring inpatient psychiatric care which could not be prevented at a less intensive level of care. Total time managing care of this patient today __30__ minutes. Discharge Plan Discharge Attending provider: Rosa Campbell Medications: New nicotine 21 mg/24 hr patch 24 hour 1 patch transdermal DAILY Qty: 14 0RF Rx Instructions: apply once daily in AM, remove patch daily at night estradiol 0.0375 mg/24 hr patch semiweekly 1 patch transdermal 2XW Qty: 8 0RF Rx Instructions: apply 1 patch for 3 days alternating with 1 patch for 4 days each week for 3 wks per 4-wk cycle aripiprazole 5 mg tablet 5 mg PO BEDTIME Qty: 14 0RF Continued albuterol sulfate 90 mcg/actuation HFA aerosol inhaler 2 puff PO Q4-6H PRN (Reason: for wheezing) Qty: 1 12RF memantine 21 mg capsule,sprinkle,ER 24hr 21 mg PO DAILY trazodone 50 mg Tablet 50 mg PO BEDTIME guanfacine 1 mg Tablet 1 mg PO DAILY Zenpep 25,000-79,000- 105,000 unit capsule,delayed release(DR/EC) 2 cap PO TID Patient Comments: TAKE 2 CAPSULES BY MOUTH THREE TIMES DAILY (1 CAPSULE WITH MEAL AND 1 CAPSULE DURING MEAL ) Zenpep 10,000-32,000 -42,000 unit capsule,delayed release(DR/EC) See Rx Instructions .ROUTE .COMPLEX Rx Instructions: TAKE 1 CAPSULE BY MOUTH WITH SNACKS , LARGER SNACKS methylphenidate HCl 5 mg Tablet 5 mg PO BID alprazolam [Xanax] 0.5 mg Tablet 0.5 mg PO BEDTIME PRN (Reason: Anxiety) Patient Comments: Last took 1.5 weeks ago. Rx Instructions: Last filled October 26, 2023 #15 tabs. telmisartan 40 mg tablet 40 mg PO DAILY Rx Instructions: Last filled 12/03/23, 3 month supply. Xembify 10 gram/50 mL (20 %) solution 9,000 mg subcut QWEEK Rx Instructions: Pharmacy has no record-Per [facility] specialty pharmacy. desloratadine 5 mg tablet 5 mg PO BID Qty: 180 0RF Changed aripiprazole 2 mg tablet 2 mg PO DAILY Qty: 14 0RF Discontinued estradiol 1 mg Tablet 1 mg PO DAILY Rx Instructions: off 1 week; repeat cycle No Action Nucala 100 mg/mL auto-injector 100 mg subcut Q4W 28 Days Qty: 1 11RF Rx Instructions: Last filled 03/11/24 #1. Stand Alone Forms: Patient Portal Discharge page Patient Education: ADHD in Adults (ED) Print Language: Faroese
--- NOTE | 2024-07-17 15:03 | PC.NURSE ---
Patient refused to sign her discharge paperwork as she stated she does not agree with her diagnosis. She wanted to talk to Dr. Campbell to change her DX to ADD and AUD and omit Personality disorder and Other Pervasive Developmental Disorder Dx. Patient spoke to Dr. Campbell in my office on speaker phone regarding changing her dx. Dr. Campbell was trying to explain why she gave her those dx however patient could not hear it. Patient interrupted Dr. Flores several times thus was not able to hear her explanations. In the end Dr. Campbell stated she would not change her dx. Patient left upset and did not want to talk about it any further.
--- NOTE | 2024-07-17 15:23 | PC.NURSE ---
I called Lisa and left her a message to call me back. I let her know that Dr. Campbell is trying to get a hold of her regarding their discussion. Awaiting call back.
--- NOTE | 2024-07-17 22:59 | P.PNPSP_ITS ---
Subjective Subjective Date of Service: 07/17/24 Reason For Visit: depression Interim History: Patient seen for follow-up, anticipating discharge at the end of program today.? Patient reports feeling more stable and is doing well on ABilify. I like it, I can tell I have needed it . Was very gracious about the help she has received being at [facility], staff, groups and working with this telegraphic typewriter repairer. She continues to ask about refills on Xanax. She is still not out, and given that we are at the start of the week she has plenty of time to reach out to her regular prescriber. Also per Shashi, patient has been prescribed #60 it seems in 2 month intervals. I will defer to her provider to make determination. Reports no acute issues or concerns. Medication compliant, medications well- tolerated. Denies any adverse effects.? Mood is stable.? Denies any hopelessness or SI. Denies thoughts of harming self or others at this time. Denies any aggressive ideation or HI. Denies any paranoia or AH or VH. Sleep, appetite, energy stable. ........................ Later received call from nurse to speak with patient who was clearly upset about her diagnoses. I was expecting to have a conversation but patient immediately demanded I change her diagnoses to ADHD and Autism diagnoses, which she has reportedly only recently received. Patient did not leave any space for conversation, immediately escalated and was shouting specific f codes, making demands and was derogatory and insulting, yelling and berating telegraphic typewriter repairer about not being a [facility] or [place] doctor. I was unable to engage her in conversation as apparently the moment she was silent the nurse informed me she walked out of the room and left the program. Of note, I have not seen any of the respective documentation or neuropsych evaluations supporting such diagnoses that I have requested from patient many times on previous admissions. She has some interpersonal struggles, as well as fragile ego issues, that are in keeping with those who struggle with character pathology. She does not clearly meet criteria for any specific personality disorder, perhaps some features of borderline, narcissitic and OCPD, not enough to carry a diagnosis for any of these specific PDs, but nonetheless this has been and continues to be a demonstrable feature of her presentation and history. (Our interaction over the phone this afternoon was a typical example of this). Patient has an exacting and demanding nature, and can quickly become burnham and insulting (utilizes primitive/immature defenses, cognitive distortions eg all or nothing thinking, idealization/undervaluing others etc) with a history of having falling outs with treaters and providers, (and can come across as bullyish) when they fail to meet her demands. Last year, she left one therapist who wouldn't collaborate with her, who was refusing to meet her demands around getting accommodations and other documentation. Medication Compliance: Yes Side effects from medications: No Attending Groups: Yes Review of Systems Acute medical concerns: No Mental Status Exam Mental Status Exam Narrative: At time of our appointment, alert, oriented, in no acute distress. Calm, cooperative. Mood stable, affect appropriate. Speech normal. Thought process linear, coherent, more goal-directed. Thought content related to stressors, future-oriented, denies any helplessness, hopelessness or SI.? No aggressive ideation or HI. No paranoia or delusional content elicited. No evidence of psychosis. Insight limited and judgment fair-good. 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 r/o bipolar spectrum mood dysregulation likely related to character, trauma and/or neurocognitive contributors (2) HCAIM (generalized anxiety disorder): Status: Acute Code(s): F41.1 - Generalized anxiety disorder (3) Pain disorder associated with psychological factors and medical condition: Status: Acute Code(s): F45.42 - Pain disorder with related psychological factors (4) Other pervasive developmental disorders: Status: Acute Code(s): F84.8 - Other pervasive developmental disorders Assessment and Plan: H/o ADHD and ASD diagnosed in adulthood (5) Unspecified personality disorder: Status: Acute Code(s): F60.9 - Personality disorder, unspecified Plan Discharge from [facility] Continue regular medications continue Abilify 3.5 mg qd (split 1/2.5 mg) wont be starting vilazodone continue guanfacine ER 1 mg qd continue memantine ER 21 mg qd continue estradiol transdermal patch (semiweekly) 0.0375 mg on nicotine patch 21 mg/d continue other regular medications?- Ritalin 5 mg BID, desloratadine, alprazolam 0.5 mg qhs prn, albuterol prn, IgG solution, Zenpep, mepolizumab subq, Routine lab work reviewed - TSH borderline high, (could consider expanded TFTs) consider augmentation with low dose LT4 for depression Refills sent to pharmacy Will defer further medication management to outpatient provider *Safety plan reviewed *Discharge diagnoses, treatment course, discharge plan have been reviewed with patient (including medication regime, medication management, potential side effects) as well as treatment rationale were also revisited *Discharge paperwork signed and given to patient, copy sent for scanning to chart Patient educated on: diagnosis and medication risk/benefits Informed Consent: understands Reason for contiued partial hosp. stay Substantial Risk for: stable for discharge Certification I certify that partial hospital treatment is medically necessary due to the symptoms and problems resulting from the patient's mental illness and the failure to treat the patient at the partial hospital level of care would likely result in the patient requiring inpatient psychiatric care which could not be prevented at a less intensive level of care. Total time managing care of this patient today __45__ minutes. Discharge Plan Discharge Attending provider: Rosa Campbell Medications: New nicotine 21 mg/24 hr patch 24 hour 1 patch transdermal DAILY Qty: 14 0RF Rx Instructions: apply once daily in AM, remove patch daily at night estradiol 0.0375 mg/24 hr patch semiweekly 1 patch transdermal 2XW Qty: 8 0RF Rx Instructions: apply 1 patch for 3 days alternating with 1 patch for 4 days each week for 3 wks per 4-wk cycle aripiprazole 5 mg tablet 5 mg PO BEDTIME Qty: 14 0RF Continued albuterol sulfate 90 mcg/actuation HFA aerosol inhaler 2 puff PO Q4-6H PRN (Reason: for wheezing) Qty: 1 12RF memantine 21 mg capsule,sprinkle,ER 24hr 21 mg PO DAILY trazodone 50 mg Tablet 50 mg PO BEDTIME guanfacine 1 mg Tablet 1 mg PO DAILY Zenpep 25,000-79,000- 105,000 unit capsule,delayed release(DR/EC) 2 cap PO TID Patient Comments: TAKE 2 CAPSULES BY MOUTH THREE TIMES DAILY (1 CAPSULE WITH MEAL AND 1 CAPSULE DURING MEAL ) Zenpep 10,000-32,000 -42,000 unit capsule,delayed release(DR/EC) See Rx Instructions .ROUTE .COMPLEX Rx Instructions: TAKE 1 CAPSULE BY MOUTH WITH SNACKS , LARGER SNACKS methylphenidate HCl 5 mg Tablet 5 mg PO BID alprazolam [Xanax] 0.5 mg Tablet 0.5 mg PO BEDTIME PRN (Reason: Anxiety) Patient Comments: Last took 1.5 weeks ago. Rx Instructions: Last filled October 26, 2023 #15 tabs. telmisartan 40 mg tablet 40 mg PO DAILY Rx Instructions: Last filled 12/03/23, 3 month supply. Xembify 10 gram/50 mL (20 %) solution 9,000 mg subcut QWEEK Rx Instructions: Pharmacy has no record-Per [facility] specialty pharmacy. desloratadine 5 mg tablet 5 mg PO BID Qty: 180 0RF Changed aripiprazole 2 mg tablet 2 mg PO DAILY Qty: 14 0RF Discontinued estradiol 1 mg Tablet 1 mg PO DAILY Rx Instructions: off 1 week; repeat cycle No Action Nucala 100 mg/mL auto-injector 100 mg subcut Q4W 28 Days Qty: 1 11RF Rx Instructions: Last filled 03/11/24 #1. Stand Alone Forms: Patient Portal Discharge page Patient Education: ADHD in Adults (ED) Print Language: [place]ese
--- NOTE | 2024-07-26 08:39 | PC.NURSE ---
Lisa called me last week upset wanting to talk to Dr. Johnson regarding her dx as she does not agree with the dx she was given. She stated she will be getting records from the program. I told her I would speak to Dr. Capmbell and let her know that Lisa would like to talk to her further regarding her dx. Dr. Campbell is aware. Lisa has called and left several messages since. I emailed Dr. Campbell on regarding the situation.
--- NOTE | 2024-07-27 09:02 | PM.EVENT ---
Event Note Date of Service: 07/31/24 Event Note: RN message, lianet text Reached out to patient this morning at 8:45am, patient says Time Spent With Patient Time: Total time managing care of this patient today ____ minutes.
--- NOTE | 2024-07-28 15:03 | PM.EVENT ---
Event Note Date of Service: 07/28/24 Event Note: Again reached out to patient this morning (after calling her yesterday morning, at the time patient asked that I call back as she was on her way to a medical appointment yesterday morning and requested I call her at 9am this morning). I reached out to her around 9am, however there was an urgent matter I was currently tied up with and was unable to speak at this time for more than a few minutes. I offered to call her back later in the day if she wanted to speak longer, which in fact was her preference. She was pleasant and agreeable with plan. I reached out to this afternoon, however she said she was currently meeting with her therapist and was unable to talk. I suggested she could call Amy on Wednesday when I am back in office and request being put on my schedule for a call back Wednesday, which she agreed to do. Time Spent With Patient Time: Total time managing care of this patient today __10__ minutes.
== END 2024-07-17 23:59 | disposition home or self-care (01) ==
LOC: HO.PHPA 10:00
PROVIDERS: Visit Provider Psychiatry & Neurology Psychiatry
DX: F33.9 Major depressive disorder, recurrent, unspecified (principal); F41.1 Generalized anxiety disorder; F45.42 Pain disorder with related psychological factors; F84.8 Other pervasive developmental disorders; F60.9 Personality disorder, unspecified; Z79.899 Other long term (current) drug therapy
CPT/HCPCS: 90791; 90853

== ENCOUNTER 2024-07-27 10:39 | Outpatient (REF) | payer MEDICAID, SELFPAY ==
--- OUTSIDE RECORDS SUMMARY | 2024-07-27 13:56 | XMS_ITS ---
Author Name [facility] Organization Unknown Care Team Organization Name Specialty Phone Email Start Date End [facility] te [facility] 02/16/2023 02/16/2023 [facility], [facility] Adonis Yepez MD Primary Care 01/23/2021 12/20/2023
== END 2024-07-27 10:40 | disposition home or self-care (01) ==
LOC: HO.SH 10:39
PROVIDERS: Visit Provider Internal Medicine
DX: Z01.118 Encounter for examination of ears and hearing with other abnormal findings (principal); H90.6 Mixed conductive and sensorineural hearing loss, bilateral
CPT/HCPCS: 92557; 92567